=== PATIENT | male | born 1970 | race Two or more races ===

== ENCOUNTER 2025-01-09 15:33 | Inpatient (IN) | payer MEDICARE, MEDICAID, SELFPAY ==
[2025-01-09 15:35] VITALS: BMI 22.8
[2025-01-09 15:46] VITALS: RESP 20
[2025-01-09 15:47] VITALS: BP 104/61; PULSE 106; RESP 20; TEMP 36.6; O2SAT 99
--- NOTE | 2025-01-09 16:15 | XR_ITS ---
Examination: Tibia-Fibula, left , 2 views Technique: Tibia-fibula AP lateral 2 views Date and time of exam: January 09, 2025 1422 hours INDICATIONS: Redness swelling in pain at the amputation site left leg beginning 2 days ago. FINDINGS: Gross cortical bone destruction with periosteal new bone tibial amputation stump with associated soft tissue swelling IMPRESSION: Osteomyelitis tibial stump with possible soft tissue abscess Consider MRI knee without contrast follow-up
--- NOTE | 2025-01-09 16:16 | PD.EDRME ---
Rapid Medical Screening Exam RME Arrival date/time: 01/09/25 15:33 54-year-old male presents to the emergency department today for complaints of dysuria patient also reports he has drainage from his left lower leg amputation site Chief Complaint: General Adult/Misc Complain Time Seen by Provider: 01/09/25 16:08 Vital signs: Vital Signs Respiratory Rate 20 01/09/25 15:46 Oxygen Delivery Method Room Air 01/09/25 15:46
[2025-01-09 16:58] LABS: Basophils % (Auto) 1 % (0-2.5); Eosinophils # (Auto) 0.1 Thou/mm3 (0.0-0.5); Eosinophils % (Auto) 3 % (0-10); Hemoglobin 11.9 g/dL (13.5-16.0); Immature Granulocytes % (Auto) 0 % (0-0); Immature Granulocytes Auto 0.02 Thou/mm3 (0.00-0.00); Lymphocytes # (Auto) 1.8 Thou/mm3 (1.0-4.8); Lymphocytes % (Auto) 31 % (10-50); Mean Corpuscular HGB Conc 36.1 g/dl (31.0-37.0); Mean Corpuscular Hemoglobin 29.2 pg (25.0-35.0); Mean Corpuscular Volume 81 fL (80-100); Monocytes # (Auto) 0.6 Thou/mm3 (0.0-0.8); Monocytes % (Auto) 11 % (0-12); Neutrophils # (Auto) 3.1 Thou/mm3 (1.8-7.7); Neutrophils % (Auto) 54 % (37-80); Nucleated Red Blood Cell % 0 /100 WBC (0); Platelet Count 468 Thou/mm3 (140-440); Red Blood Count 4.08 Miln/mm3 (4.50-5.90); White Blood Count 5.7 Thou/mm3 (3.8-10.6)
[2025-01-09 16:59] LABS: Lactate (Lactic Acid) 2.1 mMol/L (0.4-2.0)
[2025-01-09 17:04] LABS: Collection Type, Urine Clean Catch; WBC,Urine 0 /hpf (0-5)
[2025-01-09 17:15] LABS: Prothrombin Time 11.3 Seconds (9.0-12.2)
[2025-01-09 17:25] LABS: Bilirubin,Urine Negative (Negative); Blood,Urine 1+ (Negative); Clarity,Urine Clear (Clear/Hazy); Color,Urine Yellow (Lt Yel-Yel); Culture Indicated,Urine Not Indicated; Glucose, Urine 3+ (Negative); Ketones,Urine Negative (Negative); Leukocyte Esterase,Urine Negative (Negative); Nitrite,Urine Negative (Negative); PH,Urine 6.5 (5.0-7.0); Protein,Urine 3+ (Neg - Trace); RBC,Urine 69 /hpf (0-3); Specific Gravity,Urine 1.026 (1.001-1.035); Squamous Epithelial Cell,Urine < 1 /hpf (0-5); Urobilinogen,Urine Negative mg/dL (0.0-1.0)
[2025-01-09 17:51] LABS: Alanine Aminotransferase < 7 U/L (10-49); Albumin, Serum 4.2 gm/dL (3.5-5.0); Albumin/Globulin Ratio 1.2 (1.2-2.2); Alkaline Phosphatase 99 U/L (46-116); Anion Gap 12 (7-16); Aspartate Amino Transferase 16 U/L (0-34); BUN/Creatinine Ratio 19 Ratio (12-20); Bilirubin,Total 0.3 mg/dL (0.3-1.2); Blood Urea Nitrogen 28 mg/dL (9-23); C-Reactive Protein 4.1 mg/dL (0.0-0.9); Calcium 8.6 mg/dL (8.3-10.6); Calcium (Corrected) 8.6 mg/dL (8.5-10.1); Carbon Dioxide 21.9 mMol/L (20.0-31.0); Chloride 100 mMol/L (98-107); Creatinine (Component) 1.5 mg/dL (0.6-1.3); Estimated Creatinine Clearance 53.9 mL/min (>60); Globulin 3.5 gm/dL (2.3-3.5); Glucose 139 mg/dL (74-106); Osmolality,Calculated 275 (275-295); Procalcitonin 0.19 ng/ml (0.0-0.49); Sodium 134 mMol/L (136-145); Total Protein 7.7 gm/dL (5.7-8.2); eGFR 56 See Note
--- NOTE | 2025-01-09 19:38 | XR_ITS ---
Examination: AP chest single view TECHNIQUE: AP portable upright chest single view. Examination date and time: January 09, 2025 at 1955 hours INDICATIONS: Sepsis alert FINDINGS: Normal heart size Lungs are clear. The osseous structures are mildly demineralized IMPRESSION: No active disease
[2025-01-09 19:40] VITALS: BP 114/73; PULSE 97; PULSE 98; RESP 12; RESP 99; O2SAT 100
[2025-01-09 19:55] LABS: Reflex Lactate? Y
[2025-01-09] MEDS: PIPER/TAZO 3.375 GM PREMIX 3.375 GM/50 ML BAG IV (20:08)
[2025-01-09] MEDS: SODIUM CHLORIDE 0.9% 1000 ML 1,000 ML 999 ML IV (20:08)
[2025-01-09] MEDS: DOXYCYCLINE INJ 100 MG in SODIUM CHLORIDE 0.9% (POP) 100 ML IV (20:08)
--- NOTE | 2025-01-09 20:16 | EDNOTE_ITS ---
ED General RME/HPI General Chief complaint: General Adult/Misc Complain Stated complaint: INFECTION TO THE LEFT STUMP Time Seen by Provider: 01/09/25 16:08 Arrival date/time: 01/09/25 15:33 RME / HPI RME / HPI narrative: 01/09/25 15:33 54-year-old male presents to the emergency department today for complaints of dysuria patient also reports he has drainage from his left lower leg amputation site ------ Dr. Faustin?s Main ED Evaluation: 54yo male with a history of DM, HTN, HLD presents to the ED for a chief complaint of left stump pain and drainage. Patient states [place] [facility] [place] [facility] on antibiotics, and was told to follow-up with his vascular surgeon as an outpatient. Patient and his state that they have made multiple attempts to get in contact with the surgeon who performed his BKA without success and have left multiple messages. Patient states he noticed a blister on top of his left stump 2 days ago, reporting it burst and has since had drainage. Patient denies any fever, chills, N/V or any other associated symptoms. No known allergies. Related Data Home Medications ?Medication ?Instructions ?Recorded ?Confirmed ergocalciferol (vitamin D2) 1,250 1 cap PO QWEEK 05/1110/18/22 mcg (50,000 unit) capsule (Vitamin D2) insulin glargine 100 unit/mL (3 20 unit subcut HS 02/2410/18/22 mL) subcutaneous pen (Basaglar KwikPen U-100 Insulin) insulin lispro 100 unit/mL See Rx Instructions .Route .COMPLEX 05/11/22 10/18/22 subcutaneous pen (Admelog SoloStar U-100 Insulin lispro) semaglutide 0.25 mg or 0.5 mg (2 0.5 mg subcut QWEEK 0 05/11/22 10/18/22 mg/1.5 mL) subcutaneous pen injector (Ozempic) trazodone 50 mg tablet 1 tab PO HS 05/11/22 3 Previous Rx's ?Medication ?Instructions ?Recorded metformin 1,000 mg tablet 1,000 mg PO BID #20 tabs 10/23 tramadol 50 mg tablet 50 mg PO Q6H PRN pain #20 ta bs 05/12/22 Allergies Allergy/AdvReac Type Severity Reaction Status Date / Time No Known Allergies Allergy Verified 01/09/25 15:37 Review of Systems Review of Systems Systems Reviewed: All systems reviewed, normal except as documented Past Medical History Past Medical History NEUROLOGIC: Negative Neurological Disorders or Seizures CARDIAC: Positive Cardiac Disorders, Hypercholesterolemia and Hypertension; Negative Congestive Heart Failure RESPIRATORY: Negative Chronic Obstructive Pulmonary Disease (COPD) GASTROINTESTINAL: Negative Gastrointestinal Disorders GENITOURINARY: Negative Genitourinary Disorders or Renal Disease MUSCULOSKELETAL: Negative Musculoskeletal Disorders ENDOCRINE: Positive Endocrine Disorders and Diabetes Mellitus Type 2; Negative Diabetes Mellitus Type 1 HEMATOLOGIC: Negative Blood Disorders PSYCHO/SOCIAL: Positive Depression and Anxiety OTHER HISTORY: Positive Chicken Pox; Negative Autoimmune Disease, Blood Transfusions, Blood Transfusion Reaction, Anesthesia Reactions, Measles, Mumps, Rubella (Sami Measles) or Cancer Family History FAMILY HISTORY: Positive Family Cancer Surgical History SURGICAL: Positive Amputation; Negative Cardiac Surgery, Endocrine Surgery, Ear Surgery or Abdominal Surgery Social History SMOKING STATUS: Never smoker ED Exam Narrative Physical exam: GENERAL APPEARANCE: alert and oriented x 4, well-developed, well-nourished, no acute distress VITALS: All vitals were reviewed and the pulse ox is 100% on room air, which is normal according to my interpretation. HEENT: Normocephalic, atraumatic; pupils equal, round, reactive to light; EOMI; mucous membranes pink, moist; oropharynx clear NECK: Supple LUNGS: CTABL; no wheezes, no rales, no rhonchi HEART: Tachycardic at 106, regular rhythm; normal S1, S2; no murmurs ABDOMEN: non distended; normal BS; soft, no tenderness, no guarding, no rebound; no masses, no organomegaly, no hernia BACK: no CVA tenderness EXTREMITIES: atraumatic; left BKA; left stump has 2 open wounds with overlying impetigo and perulent drainage is expressed from one of the open wounds with tenderness to palpation NEUROLOGIC: awake; alert and oriented x4; cranial nerves II-XII grossly intact; no focal sensory or motor deficits PSYCHIATRIC: appropriate mood and affect SKIN: warm, dry, normal color; no rashes Course Course Course Narrative: CXR is ordered for determining the etiology of tachycardia. Quality Measures none Orders Category Date Time Status Customer Care Coordinator Q4H START 00 Care 01/09/25 19:33 Active Continuous Pulse Oximetry NOW Care 01/09/25 19:33 Completed IV [Insert IV] NOW Care 01/09/25 19:33 Active Strict Intake and Output Routine Care 01/09/25 19:38 Ordered XR chest 1V SEPSIS PROTOCOL Stat Exams 01/09/25 19:38 Completed XR tibia fibula LT 2V Stat Exams 01/09/25 16:15 Completed Blood Culture (Lab) Stat Lab 01/09/25 16:38 Received CBC Stat Lab 01/09/25 19:27 Completed CMP [Comprehensive Metabolic Panel] Stat Lab 01/09/25 16:38 Completed CRP [C-Reactive Protein] Stat Lab 01/09/25 16:38 Completed ESR [Sed Rate (ESR)] Stat Lab 01/09/25 19:27 Completed Lactic Acid [Lactate (Lactic Acid)] Stat Lab 01/09/25 16:38 Completed Lactic Acid, 3 HR Stat Lab 01/09/25 19:55 Completed PT [Prothrombin Time with INR] Stat Lab 01/09/25 16:38 Completed Procalcitonin Stat Lab 01/09/25 16:38 Completed UA, C/S IF [Urinalysis, C/S if Indicated] Stat Lab 01/09/25 16:40 Completed Doxycycline Inj [Vibramycin Inj] 100 mg Med 01/09/25 19:33 Discontinued Sodium Chloride 0.9% (Pop) [NS 0.9% mini bag] 100 ml IV X1 Ondansetron Inj [Zofran Inj] Med 01/09/25 20:53 Discontinued 4 mg IV X1 ONE Piper/Tazo 3.375 gm Premix [Zosyn] Med 01/09/25 19:35 Discontinued 3.375 gm in 50 ml IV X1 Sodium Chloride 0.9% 1000 ml [Ns] 1,000 ml Med 01/09/25 19:39 Discontinued IV 999 mls/hr fentaNYL INJ [Sublimaze Inj] Med 01/09/25 21:00 Active 50 mcg IVP X1 EKG (RT) Stat RT 01/09/25 19:38 Ordered Oxygen Delivery NOW RT 01/09/25 19:38 Active Vital Signs Vital signs: Vital Signs Respiratory Rate 20 01/09/25 15:46 Oxygen Delivery Method Room Air 01/09/25 15:46 Discharge Plan Plan Patient Disposition: Admit Acute Care w/in Hospital Problem List Clinical Impression: Osteomyelitis MDM Narrative MDM hospital course (for use when minimal MDM required): Scribe Attestation: 01/09/25 - Merle Rose, am scribing for and in the presence of Dr. Faustin. 2033: Discussed case with Dr. Harris from general surgery regarding consultation. Discussed patients ED course, exam findings, labs, and radiology results. Refuses to consult on this case. States to either discharge the patient or [place] [facility] I explained to him that we cannot do that as it's an EMTALA violation. Hospital linux administrator on-call notified. 2038: Dr. Harris called me back. After having an extensive conversation regarding this case, he agrees to consult. 2048: Discussed case with Dr. Álvarez from Hospitalist service regarding admission. Discussed patients ED course, exam findings, labs, and radiology results. The Hospitalist agrees to accept the patient for admission. Clinical Information Provided by: patient and spouse [facility] (Per chart review, patient has no relevant previous ED visits.) and other (Reviewed discharge [place] [facility] [place], which show the patient was informed to follow-up with his vascular surgeon.) Meds/Rx considered, not ordered None Labs/Rad/Tests considered, not ordered None Chronic Illness/Social Conditions Explain: History of DM, HTN, HLD Labs Labs: Interpreted by me Lab(s) Interpretation(s): CBC is normal, PT and INR are normal, Creatinine is 1.5, Glucose is 136, Lactic Acid is 2.1, CRP is elevated at 4.1, Procalcitonin is normal, UA is negative, according to my interpretation. Imaging Imaging interpretation: Interpreted by me Imaging Interpretation(s): [place] [facility] Report Signed Patient: ANNELISE ALBERTO [facility] Record#: [id number] Birthdate: 1970 Age/Sex: 54 / M Location: [facility] Attending Dr: Ordering Physician: Chapincito Faustin MD Date of Service: 01/09/25 Procedure(s): XR chest 1V SEPSIS PROTOCOL Accession Number(s): [id number] cc: Ravin Lynne MD; NO PRIMARY/FAMILY,PHYSICIAN; Chapincito Faustin MD~ Examination: AP chest single view TECHNIQUE: AP portable upright chest single view. Examination date and time: January 09, 2025 at 1955 hours INDICATIONS: Sepsis alert FINDINGS: Normal heart size Lungs are clear. The osseous structures are mildly demineralized IMPRESSION: No active disease Dictated By: Ravin Lynne MD Signed By: <Electronically signed by Ravin Lynne MD in OV> 01/09/252025 [place] [facility] Report Signed Patient: ANNELISE ALBERTO [facility] Record#: [id number] Birthdate: 1970 Age/Sex: 54 / M Location: [facility] Attending Dr: Ordering Physician: Lukas YE),Amarjit GAY Date of Service: 01/09/25 Procedure(s): XR tibia fibula LT 2V Accession Number(s): [id number] cc: Lukas YE),Amarjit GAY; Ravin Lynne MD; NO PRIMARY/FAMILY,PHYSICIAN~ Examination: Tibia-Fibula, left , 2 views Technique: Tibia-fibula AP lateral 2 views Date and time of exam: January 09, 2025 1422 hours INDICATIONS: Redness swelling in pain at the amputation site left leg beginning 2 days ago. FINDINGS: Gross cortical bone destruction with periosteal new bone tibial amputation stump with associated soft tissue swelling IMPRESSION: Osteomyelitis tibial stump with possible soft tissue abscess Consider MRI knee without contrast follow-up Dictated By: Ravin Lynne MD Signed By: <Electronically signed by Ravin Lynne MD in OV> 01/09/25 8677 Medication Administration(s) Medication Administration History Acetaminophen (Acetaminophen 325 Mg Tablet) 650 mg PO Q6H PRN PRN Reason: Fever >100.3 or pain Stop: 02/08/25 21:55 Dextrose (Dextrose 50%-Water Inj 50 Ml Syringe) 25 ml IV Q15MIN PRN PRN Reason: BG 50-70 responsive npo pt Stop: 02/08/25 21:02 Dextrose (Dextrose 50%-Water Inj 50 Ml Syringe) 50 ml IV Q15MIN PRN PRN Reason: BG <50 OR BG <70 & pt unresponsive Stop: 02/08/25 21:02 Fentanyl Citrate (Fentanyl Cit Inj 50 Mcg/Ml Amp 2ml) 50 mcg IVP X1 [facility] Stop: 01/14/25 20:59 Glucagon (Glucagon Inj 1 Mg Vial) 1 mg IM Q15MIN PRN PRN Reason: BG <70, and no IV access Heparin Sodium (Porcine) (Heparin Sod Inj 5000 Unit/Ml Vial) 5,000 unit SC Q8HR JOVANNY Stop: 01/23/25 22:14 Sodium Chloride (Ns) 1,000 mls @ 100 mls/hr IV .Q10H JOVANNY Stop: 02/08/25 21:02 Last Admin: 01/09/25 21:36 Dose: 100 mls/hr Documented By: CRUZ Piperacillin/Tazobactam/Dextrose (Zosyn) 3.375 gm in 50 mls @ 12.5 mls/hr IV Q8HR [facility] Stop: 01/16/25 21:04 Insulin Glargine (Insulin Glargine (Lantus) 5 Unit/0.05 Ml (Per 5 Units)) 10 unit SC QDAY [facility] Stop: 02/09/25 08:59 Insulin Human Lispro (Insulin Lispro (Admelog) 1 Unit/0.01 Ml Unit) 0 unit SC AC [facility]; Protocol Stop: 02/09/25 07:29 Ondansetron HCl (Ondansetron Inj 2 Mg/Ml Inj 2 Ml) 4 mg IV Q6H PRN; Protocol PRN Reason: NAUSEA OR VOMITING Stop: 02/08/25 21:55 Pharmacy Consult (Vancomycin Pharmacy To Dose 1 Each Each) 1 each IV QDAY [facility] Stop: 02/09/25 08:59 Sennosides (Senna Tablet) 1 tab PO QDAY PRN; Protocol PRN Reason: constipation Stop: 02/08/25 21:55 Discontinued Medications Piperacillin/Tazobactam/Dextrose (Zosyn) 3.375 gm in 50 mls @ 100 mls/hr IV X1 ONE Stop: 01/09/25 20:04 Last Infusion: 01/09/25 20:38 Dose: Infused Documented By: Admin: 01/09/25 20:08 Dose: 100 mls/hr Documented By: TERENCE Doxycycline Hyclate 100 mg/ (Sodium Chloride) 100 mls @ 100 mls/hr IV X1 ONE Stop: 01/09/25 20:32 Last Infusion: 01/09/25 21:08 Dose: Infused Documented By: Admin: 01/09/25 20:08 Dose: 100 mls/hr Documented By: TERENCE Sodium Chloride (Ns) 1,000 mls @ 999 mls/hr IV .Q1H1M ONE Stop: 01/09/25 20:39 Last Infusion: 01/09/25 21:09 Dose: Infused Documented By: Admin: 01/09/25 20:08 Dose: 999 mls/hr Documented By: TERENCE Piperacillin/Tazobactam/Dextrose (Zosyn) 3.375 gm in 50 mls @ 100 mls/hr IV Q8HR JOVANNY Stop: 01/16/25 21:04 Vancomycin/Sodium Chloride (Vancomycin/Ns 1 Gm Ivpb) 200 mls @ 120 mls/hr IV X1 ONE Stop: 01/09/25 22:54 Last Admin: 01/09/25 21:36 Dose: 120 mls/hr Documented By: CRUZ Ondansetron HCl (Ondansetron Inj 2 Mg/Ml Inj 2 Ml) 4 mg IV X1 ONE; Protocol Stop: 01/09/25 20:54 Last Admin: 01/09/25 21:53 Dose: 4 mg Documented By: CRUZ see above Diagnosis Differential Diagnosis ED Complaint MDM: cellulitis, osteomyelitis, subcutaneous abscess, sepsis
[2025-01-09 20:21] LABS: Sed Rate (ESR) 37 mm/hr (0-20)
[2025-01-09 21:05] LABS: Lactic Acid, 3 HR 1.1 mMol/L (0.4-2.0)
--- NOTE | 2025-01-09 21:05 | PD.EVENT ---
Documentation for date of: 01/09/25 Event Note Event Note: A 54-year-old male presented to the ER with the chief complaint of dysuria and drainage from his left leg amputation site. The patient described 2 days of drainage from the left stump. He noticed a blister over the site that burst, followed by ongoing pus discharge. He reports mild pain described as burning and discomfort at the site. He also c/o burning with urination (started 2 days ago), mild cough (uncertain cause), and subjective mild stump pain. Patient denied fever, chills, nausea, vomiting, chest pain, or shortness of breath. He was seen at [facility] three weeks ago for a similar infection and was discharged home on antibiotics with instructions to follow up with surgery. He reports incomplete use of oral antibiotics but continues using a topical cream. He presented today due to worsening drainage and persistent symptoms. The patient has a history of DM, HTN, and HLD. Surgical history includes right great toe amputation (2020) and left below-knee amputation (2022). Current medications include Clindamycin, Gabapentin, Insulin Glargine, Insulin Lispro, Lisinopril. Social history includes no smoking, alcohol, or drug use. In the ER, vital signs recorded as temp 97.8 F, HR 106 bpm, RR 20, BP 104/61 mmHg. Lab revealed Hb 11.9 g/dL, WBC 5.7 Thou/mm3, Plt 468 Thou/mm3, Na 134 mMol/L, K 4.0 mMol/L, Cl 100 mMol/L, BUN 28 mg/dL, Creatinine 1.5 mg/dL, eGFR 56, Procalcitonin 0.19, AST 16, ALT <7, Bilirubin 0.3, Lactic acid 2.1, Cr 4.1, ESR 37. XR tibia/fibula showed osteomyelitis of the tibial stump with possible soft tissue abscess; consider MRI knee without contrast follow-up. CXR showed no active disease. Surgery was consulted. Admit for further evaluation and treatment.
[2025-01-09] MEDS: SODIUM CHLORIDE 0.9% 1000 ML 1,000 ML 100 ML IV (21:36)
[2025-01-09] MEDS: VANCOMYCIN/NS 1 GM IVPB 200 ML IV (21:36)
[2025-01-09] MEDS: ONDANSETRON INJ 2 MG/ML INJ 2 ML 4 MG IV (21:53)
--- NOTE | 2025-01-09 22:04 | ESHP_ITS ---
Documentation for date of: 01/09/25 HPI History of Present Illness Chief complaint: Left leg infection History of present illness: Kwabena Weber is 54 yr male with PMH of poorly controlled diabetes, hypertension, hyperlipidemia presenting to ED today due to worsening infection at area of left leg amputation. 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 Since then patient uses walker for assistance. In the past 2 to 3 weeks, he has been experiencing moderate pain, erythema, drainage, foul-smelling odor, and bleeding from site of amputation. Patient had gone to [facility] on December 18 and was discharged from the ED with p.o. antibiotics. Patient was instructed to contact vascular surgery in [place] for evaluation. However multiple attempts have been made with no response. Patient decided to then come to [facility] for evaluation and management. He uses a CGM monitor at home with average blood sugars ranging 300-400s. Continues to eat sugar, high carbs, and bunch of soda everyday. He denies any fever, chills. Endorses dysuria. In ED, BP 104/61, tachycardia 106, afebrile. No leukocytosis, platelets 468, Hb 11.9, mild hyponatremia sodium 134, Cr 1.5, glucose 139, Elevated ESR 37, lactic acid 2.1, elevated CRP 4.1. UA 3+ protein, 3+ glucosuria, hematuria. Leukocyte esterase negative, no WBCs. Left x-ray of foot, tibia, fibula showed cortical bone destruction with soft tissue swelling. Follow-up MRI pending. Patient to be admitted for treatment for sepsis secondary to osteomyelitis and STEPHANIE. PMH: As noted above PSH: Left BKA at 2022, right toe amputation 2021 FamHx: Diabetes in mother and father, hypertension. Social: Unemployed, lives with , denies smoking, denies drinking, denies drug use. Meds: 20 units glargine, sliding scale insulin, metformin 1000 twice daily, Ozempic 0.5 mg, tramadol Allergies: NKDA Review of Systems Review of Systems Systems Reviewed: All systems reviewed, normal except as documented Exam Vital Signs Temp Pulse Resp BP Pulse Ox O2 Del Method 97.8 F 97 12 114/73 100 Room Air 01/09/25 15:47 01/09/25 19:40 01/09/25 19:40 01/09/25 19:40 01/09/25 19:40 01/09/25 19:40 Narrative Exam General: Middle-aged male, no acute distress, cooperative. HEENT: NCAT, No JVD noted. Mucosa moist, poor oral hygiene. Pupils are equal and reactive to light .bilaterally Cardiovascular: Normal S1 and S2. Regular rate and rhythm. Respiratory: Lungs are clear to auscultation bilaterally. No wheezing or crackles heard. Abdomen: Soft, nontender, not distended, normal bowel sounds. Skin: Warm to touch, dry, no rashes noted. Musculoskeletal: No gross injuries. Able to move all 4 extremities. Left BKA, right first toe amputation. Left leg erythematous, no odor, no active bleeding or pus drainage. no pitting edema. Neuro: Alert and oriented x3. No focal neuro deficits. Psych: Normal affect and mood. Results: Labs 01/09/25 19:27 01/09/25 16:38 Labs: Short CBC 01/09/25 Range/Units 19:27 WBC 5.7 (3.8-10.6) Thou/mm3 Hgb 11.9 L (13.5-16.0) g/dL Hct 33.0 L (41.0-53.0) % Plt Count 468 H (140-440) Thou/mm3 BMP 01/09/25 16:38 Sodium 134 L Potassium 4.0 Chloride 100 Carbon Dioxide 21.9 BUN 28 H Creatinine 1.5 H Glucose 139 H Calcium 8.6 Liver Function 01/09/25 Range/Units 16:38 Total Bilirubin 0.3 (0.3-1.2) mg/dL AST 16 (0-34) U/L ALT < 7 L (10-49) U/L Alkaline Phosphatase 99 (46-116) U/L Albumin 4.2 (3.5-5.0) gm/dL Urine 01/09/25 Range/Units 16:40 Urine Color Yellow (Lt Yel-Yel) Urine Clarity Clear (Clear/Hazy) Urine pH 6.5 (5.0-7.0) Ur Specific [place] 1.026 (1.001-1.035) Urine Protein 3+ A (Neg - Trace) Urine Glucose (UA) 3+ A (Negative) Quality Measures Quality Measures none Medications Home Medications and Allergies Home Medications ?Medication ?Instructions ?Recorded ?Confirmed ?Type ergocalciferol (vitamin D2) 1,250 1 cap PO QWEEK 05/1110/18/22 History mcg (50,000 unit) capsule (Vitamin D2) insulin glargine 100 unit/mL (3 20 unit subcut HS 02/2410/18/22 History mL) subcutaneous pen (Basaglar KwikPen U-100 Insulin) insulin lispro 100 unit/mL See Rx Instructions .Route .COMPLEX 05/11/22 10/18/22 History subcutaneous pen (Admelog SoloStar U-100 Insulin lispro) semaglutide 0.25 mg or 0.5 mg (2 0.5 mg subcut QWEEK 0 05/11/22 10/18/22 History mg/1.5 mL) subcutaneous pen injector (Ozempic) trazodone 50 mg tablet 1 tab PO HS 05/11/22 3 History Allergies Allergy/AdvReac Type Severity Reaction Status Date / Time No Known Allergies Allergy Verified 01/09/25 15:37 Visit Medications Acetaminophen (Acetaminophen 325 Mg Tablet) 650 mg PO Q6H PRN PRN Reason: Fever >100.3 or pain Stop: 02/08/25 21:55 Dextrose (Dextrose 50%-Water Inj 50 Ml Syringe) 25 ml IV Q15MIN PRN PRN Reason: BG 50-70 responsive npo pt Stop: 02/08/25 21:02 Dextrose (Dextrose 50%-Water Inj 50 Ml Syringe) 50 ml IV Q15MIN PRN PRN Reason: BG <50 OR BG <70 & pt unresponsive Stop: 02/08/25 21:02 Fentanyl Citrate (Fentanyl Cit Inj 50 Mcg/Ml Amp 2ml) 50 mcg IVP X1 JOVANNY Stop: 01/14/25 20:59 Glucagon (Glucagon Inj 1 Mg Vial) 1 mg IM Q15MIN PRN PRN Reason: BG <70, and no IV access Heparin Sodium (Porcine) (Heparin Sod Inj 5000 Unit/Ml Vial) 5,000 unit SC Q8HR JOVANNY Stop: 01/23/25 22:14 Sodium Chloride (Ns) 1,000 mls @ 100 mls/hr IV .Q10H JOVANNY Stop: 02/08/25 21:02 Last Admin: 01/09/25 21:36 Dose: 100 mls/hr Piperacillin/Tazobactam/Dextrose (Zosyn) 3.375 gm in 50 mls @ 12.5 mls/hr IV Q8HR JOVANNY Stop: 01/16/25 21:04 Vancomycin/Sodium Chloride (Vancomycin/Ns 1 Gm Ivpb) 200 mls @ 120 mls/hr IV X1 ONE Stop: 01/09/25 22:54 Last Admin: 01/09/25 21:36 Dose: 120 mls/hr Insulin Glargine (Insulin Glargine (Lantus) 5 Unit/0.05 Ml (Per 5 Units)) 10 unit SC QDAY JOVANNY Stop: 02/09/25 08:59 Insulin Human Lispro (Insulin Lispro (Admelog) 1 Unit/0.01 Ml Unit) 0 unit SC AC JOVANNY; Protocol Stop: 02/09/25 07:29 Ondansetron HCl (Ondansetron Inj 2 Mg/Ml Inj 2 Ml) 4 mg IV Q6H PRN; Protocol PRN Reason: NAUSEA OR VOMITING Stop: 02/08/25 21:55 Pharmacy Consult (Vancomycin Pharmacy To Dose 1 Each Each) 1 each IV QDAY JOVANNY Stop: 02/09/25 08:59 Sennosides (Senna Tablet) 1 tab PO QDAY PRN; Protocol PRN Reason: constipation Stop: 02/08/25 21:55 Discontinued Medications Piperacillin/Tazobactam/Dextrose (Zosyn) 3.375 gm in 50 mls @ 100 mls/hr IV X1 ONE Stop: 01/09/25 20:04 Last Infusion: 01/09/25 20:38 Dose: Infused Doxycycline Hyclate 100 mg/ (Sodium Chloride) 100 mls @ 100 mls/hr IV X1 ONE Stop: 01/09/25 20:32 Last Infusion: 01/09/25 21:08 Dose: Infused Sodium Chloride (Ns) 1,000 mls @ 999 mls/hr IV .Q1H1M ONE Stop: 01/09/25 20:39 Last Infusion: 01/09/25 21:09 Dose: Infused Piperacillin/Tazobactam/Dextrose (Zosyn) 3.375 gm in 50 mls @ 100 mls/hr IV Q8HR JOVANNY Stop: 01/16/25 21:04 Ondansetron HCl (Ondansetron Inj 2 Mg/Ml Inj 2 Ml) 4 mg IV X1 ONE; Protocol Stop: 01/09/25 20:54 Last Admin: 01/09/25 21:53 Dose: 4 mg Assessment & Plan Plan Kwabena Weber is 54 yr male with PMH of poorly controlled diabetes, hypertension, hyperlipidemia presenting to ED today due to worsening infection at area of left leg amputation. 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 Patient to be admitted for treatment for sepsis secondary to osteomyelitis and STEPHANIE. #Sepsis 2/2 osteomyelitis infection Patient has history of left BKA due to osteomyelitis in the past. Site of amputation showing signs of infection with pus, odor, erythema. No leukocytosis, ESR elevated 37, lactic acid 2.1, CRP elevated 4.1. Sepsis due to osteomyelitis with acute sepsis-related organ dysfunction as evidence by STEPHANIE. Left x-ray of foot, tibia, fibula showed cortical bone destruction with soft tissue swelling. - Blood cultures pending - MRI left leg pending - Surgery Dr. Abernathy was consulted, appreciate recs - IV Zosyn 3.375g TID (01/09-) - Vancomycin (01/09-) #STEPHANIE BUN 28, Cr 1.5. BUN/Cr 19. Most likely pre renal in setting of sepsis. - Maintenance fluids - Avoid nephrotoxic agents - Daily CMP #Hx insulin-dependent diabetes, poorly controlled Glucose on admission 139. No recent A1c on file. Patient takes 20 units glargine, sliding scale insulin, metformin 1000 twice daily for diabetes at home. Average blood sugars at home 300?400. Patient does not comply to proper diet drinking multiple sodas every day. - Held home medications - Bedside blood glucose checks ACHS - Insulin lispro sliding scale - Carb consistent low diet - A1c pending #Hx HTN #Hx HLD - Med rec pending Health maintenance: Dispo: mes surg, OM FEN: low carb, NPO midnight DVT prophylaxis: Subcu heparin CODE STATUS: Full code The patient's management plan was discussed with my attending physician Dr. Álvarez. Addie Goodrich, PGY-1 Attending Provider Attestation/Addendum Pt was evaluated and plan formulated together with the housestaff team. I have reviewed the residents note above and agree with most of its content. Please refer to the residents note for additional details.
[2025-01-09 22:54] VITALS: BP 117/84; PULSE 99; RESP 16; O2SAT 99
[2025-01-09 23:16] LABS: Glucose Estimated Average 355 mg/dL (80-131); Hemoglobin A1C > 14.0 % Hgb (4.8-6.0)
--- NOTE | 2025-01-10 | XR_ITS ---
Examination: MRI left lower leg with intravenous contrast TECHNIQUE: Multiple axial sagittal coronal MRI images left knee post intravenous ministration 13 cc gadolinium Exam date and time: January 2025 1143 hours Comparison MRI knee images without contrast January 10, 2025 1103 hours INDICATIONS: History below the knee amputation, redness swelling and pain at the amputation stump this week FINDINGS: Marked abnormal enhancement involving the distal tibia which actually begins 11 cm from the amputation stump Nonenhancing soft tissue abscess at the anterior distal tibia is again noted 10 x 20 x 9 mm Fibula appears intact IMPRESSION: Extensive osteomyelitis distal tibia Small soft tissue abscess
--- NOTE | 2025-01-10 | XR_ITS ---
Examination: MRI left lower leg, without contrast Date and time of exam: January 10, 2025 1103 hours INDICATIONS: History below the knee amputation, redness swelling and pain at the amputation site left knee noticed this week Technique: Multiple axial sagittal and coronal images of the left lower leg have been obtained with the Siemens high-resolution 1.5 Nida MRI scanner. Images obtained include T2-weighted fat-suppressed sagittal sections, TR 3500, TE 46, T2 weighted coronal fat suppressed images, TR 3050, TE 84, T2-weighted transverse fat suppressed images, TR 3260, TE 63, proton density transverse images, TR 4720 TE 46, and T1 weighted coronal images, TR 560, TE 13. Findings: Extensive edema in the subcutaneous tissues surrounding the amputation stump Marked cortical bone destruction involving the distal tibia extending at least 5 cm from the tibial stump Extensive soft tissue infection at the amputation stump with a 8 x 10 x 20 mm abscess at the anterior distal margin of the tibia IMPRESSION: Significant osteomyelitis distal tibia as above 8 x 10 x 20 mm soft tissue abscess at the anterior distal margin of the tibia
[2025-01-10] MEDS: PIPER/TAZO 3.375 GM PREMIX 3.375 GM/50 ML BAG IV ×2 (00:16→07:50)
[2025-01-10] MEDS: HEPARIN SOD INJ 5000 UNIT/ML VIAL SC ×4 (00:16→21:54)
[2025-01-10 02:17] VITALS: BP 111/84; PULSE 89; RESP 15; TEMP 36.7; O2SAT 100
[2025-01-10 05:58] LABS: Basophils % (Auto) 1 % (0-2.5); Eosinophils # (Auto) 0.2 Thou/mm3 (0.0-0.5); Eosinophils % (Auto) 3 % (0-10); Hematocrit 28.3 % (41.0-53.0); Hemoglobin 9.9 g/dL (13.5-16.0); Immature Granulocytes % (Auto) 1 % (0-0); Immature Granulocytes Auto 0.03 Thou/mm3 (0.00-0.00); Lymphocytes % (Auto) 38 % (10-50); Mean Corpuscular Hemoglobin 29.1 pg (25.0-35.0); Mean Corpuscular Volume 83 fL (80-100); Monocytes # (Auto) 0.6 Thou/mm3 (0.0-0.8); Monocytes % (Auto) 11 % (0-12); Neutrophils # (Auto) 2.4 Thou/mm3 (1.8-7.7); Neutrophils % (Auto) 47 % (37-80); Nucleated Red Blood Cell % 0 /100 WBC (0); Platelet Count 428 Thou/mm3 (140-440); RDW Standard Deviation 38.1 fL (35.1-43.9); White Blood Count 5.1 Thou/mm3 (3.8-10.6)
[2025-01-10 06:07] VITALS: BP 135/82; PULSE 91; RESP 15; O2SAT 97
[2025-01-10 06:26] LABS: Alanine Aminotransferase < 7 U/L (10-49); Albumin, Serum 3.3 gm/dL (3.5-5.0); Albumin/Globulin Ratio 1.1 (1.2-2.2); Alkaline Phosphatase 79 U/L (46-116); Anion Gap 6 (7-16); Aspartate Amino Transferase 10 U/L (0-34); BUN/Creatinine Ratio 21 Ratio (12-20); Bilirubin,Total 0.2 mg/dL (0.3-1.2); Blood Urea Nitrogen 23 mg/dL (9-23); Calcium 7.7 mg/dL (8.3-10.6); Calcium (Corrected) 8.3 mg/dL (8.5-10.1); Carbon Dioxide 25.7 mMol/L (20.0-31.0); Chloride 106 mMol/L (98-107); Creatinine (Component) 1.1 mg/dL (0.6-1.3); Estimated Creatinine Clearance 73.4 mL/min (>60); Glucose 180 mg/dL (74-106); Magnesium 1.5 mg/dL (1.6-2.6); Osmolality,Calculated 284 (275-295); Phosphorous 2.8 mg/dL (2.4-5.1); Potassium 3.8 mMol/L (3.4-5.1); Sodium 138 mMol/L (136-145); Total Protein 6.3 gm/dL (5.7-8.2); eGFR > 60 See Note
[2025-01-10] MEDS: INSULIN LISPRO (AdmeLOG) 1 UNIT/0.01 ML UNIT SC ×3 (07:48→17:44)
[2025-01-10] MEDS: SODIUM CHLORIDE 0.9% 1000 ML 1,000 ML 100 ML IV ×2 (07:49→19:16)
[2025-01-10 08:26] VITALS: BP 128/84; PULSE 88; RESP 16; TEMP 36.5; O2SAT 100
[2025-01-10] MEDS: INSULIN GLARGINE (Lantus) 5 UNIT/0.05 ML (PER 5 UNITS) 10 UNIT SC (09:41)
[2025-01-10] MEDS: VANCOMYCIN/NS 750 MG IVPB 750 MG/150 ML BAG 120 MG IV (09:43)
[2025-01-10 10:32] VITALS: BP 115/80; PULSE 94; RESP 18; TEMP 36.8; O2SAT 98
--- NOTE | 2025-01-10 11:00 | ESCONSULT_ITS ---
[facility] Consult details Consult date: 01/10/25 Reason for consultation narrative: The patient was seen on consultation because of infection over the stump of the below-knee amputation. History of present illness: History of present illness revealed that the patient had undergone below-knee amputation at [facility] in 2022. He was ambulating with prosthesis. But 3 weeks ago he developed some drainage over the stump and some redness. They treated him with antibiotics and discharge him. Patient has been planning to get in touch with the surgeon who performed the amputation but he was unsuccessful. It looks that they also advised him to contact vascular surgeon for follow-up. Patient therefore came to the emergency room at [facility]. Patient's past emergency room that he had history of diabetes which is poorly controlled, hypertension and hyperlipidemia. Patient also has had surgery on the right foot with amputation of the toe on multiple surgeries on the right foot by the dialysis equipment technician. Past Medical History Past Medical History NEUROLOGIC: Negative Neurological Disorders or Seizures CARDIAC: Positive Cardiac Disorders, Hypercholesterolemia and Hypertension; Negative Congestive Heart Failure RESPIRATORY: Negative Respiratory Disorders or Chronic Obstructive Pulmonary Disease (COPD) GASTROINTESTINAL: Negative Gastrointestinal Disorders GENITOURINARY: Negative Genitourinary Disorders or Renal Disease MUSCULOSKELETAL: Negative Musculoskeletal Disorders ENDOCRINE: Positive Endocrine Disorders and Diabetes Mellitus Type 2; Negative Diabetes Mellitus Type 1 HEMATOLOGIC: Negative Blood Disorders PSYCHO/SOCIAL: Positive Depression and Anxiety OTHER HISTORY: Positive Chicken Pox; Negative Autoimmune Disease, Blood Transfusions, Blood Transfusion Reaction, Anesthesia Reactions, Measles, Mumps, Rubella (Wolof Measles) or Cancer Family History FAMILY HISTORY: Positive Family Cancer Surgical History SURGICAL: Positive Amputation; Negative Cardiac Surgery, Endocrine Surgery, Ear Surgery or Abdominal Surgery Social History SMOKING STATUS: Never smoker Meds Home Medications and Allergies Home Medications ?Medication ?Instructions ?Recorded ?Confirmed ?Type ergocalciferol (vitamin D2) 1,250 1 cap PO QWEEK 05/1110/18/22 History mcg (50,000 unit) capsule (Vitamin D2) insulin glargine 100 unit/mL (3 20 unit subcut HS 02/2410/18/22 History mL) subcutaneous pen (Basaglar KwikPen U-100 Insulin) insulin lispro 100 unit/mL See Rx Instructions .Route .COMPLEX 05/11/22 10/18/22 History subcutaneous pen (Admelog SoloStar U-100 Insulin lispro) semaglutide 0.25 mg or 0.5 mg (2 0.5 mg subcut QWEEK 0 05/11/22 10/18/22 History mg/1.5 mL) subcutaneous pen injector (Ozempic) trazodone 50 mg tablet 1 tab PO HS 05/11/22 3 History Allergies Allergy/AdvReac Type Severity Reaction Status Date / Time No Known Allergies Allergy Verified 01/09/25 15:37 Exam Vital Signs Temp Pulse Resp BP Pulse Ox O2 Del Method 98.2 F 94 18 115/80 98 Room Air 01/10/25 10:32 01/10/25 10:32 01/10/25 10:32 01/10/25 10:32 01/10/25 10:32 01/10/25 10:32 Narrative Exam My physical examination revealed a thin built male who is 5 foot 7 inches tall weighing 146 pounds with BMI of 22.9 his vital signs are normal and patient is not in distress Constitutional Constitutional: no acute distress Routine Chest/Breast/Axilla Exam Comments: Within normal limits Routine Respiratory Exam Comments: Good breath sounds on both Routine Abdominal Exam Comments: Abdominal examination is unremarkable Routine Rectal Exam Comments: Deferred Routine Exam Comments: Deferred Routine Extremities Exam Comments: Examination of the extremities showed below the knee amputation on the left which is nicely healed. There is 1 area which is slightly open and draining some serous fluid. There is no erythema or gangrene or ischemic changes at the stump. Patient has a good palpable popliteal pulse on the left side. Examination of the right foot revealed amputation of the right great toe. Pedal pulses are difficult to palpate Results Results: Laboratory Laboratory Narrative: Laboratory results are within normal limits with no leukocytosis Results: Imaging Imaging narrative: The x-ray of the left BKA stump showed osteomyelitis of the tibial and Assessment & Plan Additional Assessment Additional comments: Impression: Osteomyelitis of the left below-knee stump with superficial abscesses Poorly controlled diabetes Hypertension Hyperlipidemia Plan Plan: Patient requires IV antibiotic therapy to see if we can salvage his BKA stump. Since there is no ischemia or infection in the skin patient does not require surgical intervention of this time. I do not find any abscess to drain. I suggest we also get an opinion from orthopedic surgeon to see how to treat this osteomyelitis of the tibia. Patient may have to go on a long-term IV antibiotics. Meanwhile patient is attempting to contact the surgeon who should see this stump on continue care.
--- NOTE | 2025-01-10 11:47 | ESPR_ITS ---
Documentation for date of: 01/10/25 Subjective Subjective Interval history: Patient seen today at the bedside found awake, alert, oriented x 3. Vital signs and labs reviewed. Patient is an overnight admit for osteomyelitis. General surgery evaluated the patient recommended IV antibiotics at this time no need for surgical intervention. Antibiotic therapy adjusted to Rocephin and doxycycline. Infectious disease was consulted will appreciate further recommendations. Exam Vital Signs Temp Pulse Resp BP Pulse Ox O2 Del Method 98.2 F 94 18 115/80 98 Room Air 01/10/25 10:32 01/10/25 10:32 01/10/25 10:32 01/10/25 10:32 01/10/25 10:32 01/10/25 10:32 Narrative Exam Physical Exam GENERAL: NAD, AAOx3 HEENT: Moist mucosa. Eyes open, symmetrical, & clear CARDIO: Heart RRR, no obvious murmurs PULM: No noted coughing/dyspnea CTA B/L, no R/W/R GI: Abdomen soft, nondistended, no pain on palpation. BSx4 SKIN/MSK/EXT: Left BKA, right first toe amputation. Left leg erythematous, no pain on palpation. Pedal pulses present B/L NEURO: AAOx3, no focal neuro deficits, able to move all 4 extremities Objective Labs 01/10/25 05:00 01/10/25 04:40 Labs: Laboratory Results - last 24 hr 01/09/25 01/09/25 01/09/25 16:38 16:40 19:27 WBC 5.7 RBC 4.08 L Hgb 11.9 L Hct 33.0 L MCV 81 MCH 29.2 MCHC 36.1 RDW Std Deviation 36.0 Plt Count 468 H Neut % (Auto) 54 Lymph % (Auto) 31 [place] % (Auto) 11 Eos % (Auto) 3 Baso % (Auto) 1 Neut # (Auto) 3.1 Lymph # (Auto) 1.8 [place] # (Auto) 0.6 Eos # (Auto) 0.1 Baso # (Auto) 0.0 Immature Gran # (Auto) 0.02 H Absolute Nucleated RBC 0.00 Immature Gran % 0 Nucleated RBC % 0 ESR 37 H PT 11.3 INR 1.0 Sodium 134 L Potassium 4.0 Chloride 100 Carbon Dioxide 21.9 Anion Gap 12 BUN 28 H Creatinine 1.5 H Estim Creat Clear Calc 53.9 L eGFR 56 L BUN/Creatinine Ratio [address] Glu mg/dL Hemoglobin A1c Calculated Osmolality 275 Lactic Acid 2.1 H Calcium 8.6 Corrected Calcium 8.6 Phosphorus Magnesium Total Bilirubin 0.3 AST 16 ALT < 7 L Alkaline Phosphatase 99 C-Reactive Prot, Quant 4.1 H Total Protein 7.7 Albumin 4.2 Globulin 3.5 Albumin/Globulin Ratio 1.2 Procalcitonin 0.19 Ur Collection Type Clean Catch Urine Color Yellow Urine Clarity Clear Urine pH 6.5 Ur Specific [place] 1.026 Urine Protein 3+ A Urine Glucose (UA) 3+ A Urine Ketones Negative Urine Blood 1+ A Urine Nitrite Negative Urine Bilirubin Negative Urine Urobilinogen (Auto) Negative Ur Leukocyte Esterase Negative Urine RBC 69 H Urine WBC 0 Ur Squamous Epith Cells < 1 Urine Bacteria None Ur Culture Indicated? Not Indicated 01/09/25 01/10/25 01/10/25 19:55 04:40 05:00 WBC 5.1 RBC 3.40 L Hgb 9.9 L D Hct 28.3 L MCV 83 MCH 29.1 MCHC 35.0 RDW Std Deviation 38.1 Plt Count 428 D Neut % (Auto) 47 Lymph % (Auto) 38 [place] % (Auto) 11 Eos % (Auto) 3 Baso % (Auto) 1 Neut # (Auto) 2.4 Lymph # (Auto) 2.0 [place] # (Auto) 0.6 Eos # (Auto) 0.2 Baso # (Auto) 0.0 Immature Gran # (Auto) 0.03 H Absolute Nucleated RBC 0.00 Immature Gran % 1 H Nucleated RBC % 0 ESR PT INR Sodium 138 Potassium 3.8 Chloride 106 Carbon Dioxide 25.7 Anion Gap 6 L BUN 23 Creatinine 1.1 Estim Creat Clear Calc 73.4 eGFR > 60 BUN/Creatinine Ratio 21 H Glucose [address] Glu mg/dL 355 H Hemoglobin A1c > 14.0 H Calculated Osmolality 284 Lactic Acid 1.1 Calcium 7.7 L Corrected Calcium 8.3 L Phosphorus 2.8 Magnesium 1.5 L Total Bilirubin 0.2 L AST 10 ALT < 7 L Alkaline Phosphatase 79 D C-Reactive Prot, Quant Total Protein 6.3 Albumin 3.3 L D Globulin 3.0 Albumin/Globulin Ratio 1.1 L Procalcitonin Ur Collection Type Urine Color Urine Clarity Urine pH Ur Specific [place] Urine Protein Urine Glucose (UA) Urine Ketones Urine Blood Urine Nitrite Urine Bilirubin Urine Urobilinogen (Auto) Ur Leukocyte Esterase Urine RBC Urine WBC Ur Squamous Epith Cells Urine Bacteria Ur Culture Indicated? Quality Measures Quality Measures none Assessment & Plan Assessment Current Active Medications: Generic Name Dose Route Start Last Admin Trade Name Freq PRN Reason Stop Dose Admin Acetaminophen 650 mg 01/09/25 21:56 Acetaminophen 325 Mg Tablet PO 02/08/25 21:55 Q6H PRN Fever >100.3 or pain Dextrose 25 ml 01/09/25 21:03 Dextrose 50%-Water Inj 50 Ml Syringe IV 02/08/25 21:02 Q15MIN PRN BG 50-70 responsive npo pt Dextrose 50 ml 01/09/25 21:03 Dextrose 50%-Water Inj 50 Ml Syringe IV 02/08/25 21:02 Q15MIN PRN BG <50 OR BG <70 & pt unresponsive Fentanyl Citrate 50 mcg 01/09/25 21:00 Fentanyl Cit Inj 50 Mcg/Ml Amp 2ml IVP 01/14/25 20:59 X1 JOVANNY Glucagon 1 mg 01/09/25 21:03 Glucagon Inj 1 Mg Vial IM Q15MIN PRN BG <70, and no IV access Heparin Sodium (Porcine) 5,000 unit 01/09/25 22:15 01/10/25 07:46 Heparin Sod Inj 5000 Unit/Ml Vial SC 01/23/25 22:14 5,000 unit Q8HR JOVANNY Administration Sodium Chloride 1,000 mls @ 100 mls/hr 01/09/25 21:03 01/10/25 07:49 Ns IV 02/08/25 21:02 100 mls/hr .Q10H JOVANNY Administration Ceftriaxone Sodium 2 gm/ 50 mls @ 100 mls/hr 01/10/25 11:18 Sodium Chloride IV 01/17/25 11:17 QDAY JOVANNY Doxycycline Hyclate 100 mg/ 100 mls @ 100 mls/hr 01/10/25 11:30 Sodium Chloride IV 01/17/25 11:29 BID JOVANNY Insulin Glargine 10 unit 01/10/25 09:00 01/10/25 09:41 Insulin Glargine (Lantus) 5 Unit/0.05 Ml (Per 5 Units) SC 02/09/25 08:59 10 unit QDAY JOVANNY Administration Insulin Human Lispro 0 unit 01/10/25 07:30 01/10/25 07:48 Insulin Lispro (Admelog) 1 Unit/0.01 Ml Unit SC 02/09/25 07:29 1 unit AC JOVANNY Administration Protocol Ondansetron HCl 4 mg 01/09/25 21:56 Ondansetron Inj 2 Mg/Ml Inj 2 Ml IV 02/08/25 21:55 Q6H PRN NAUSEA OR VOMITING Protocol Sennosides 1 tab 01/09/25 21:56 Senna Tablet PO 02/08/25 21:55 QDAY PRN constipation Protocol Plan 54 yr male with PMH of poorly controlled diabetes, hypertension, hyperlipidemia presenting to ED today due to worsening infection at area of left leg amputation. 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 Patient to be admitted for treatment for sepsis secondary to osteomyelitis and STEPHANIE. #Osteomyelitis infection Patient has history of left BKA due to osteomyelitis in the past. Site of amputation showing signs of infection with pus, odor, erythema. No leukocytosis, ESR elevated 37, lactic acid 2.1, CRP elevated 4.1. Sepsis due to osteomyelitis with acute sepsis-related organ dysfunction as evidence by STEPHANIE. Left x-ray of foot, tibia, fibula showed cortical bone destruction with soft tissue swelling. Patient came in and found to have 2 or more SIRS criteria and was evaluated for sepsis. However, based upon further work-up, sepsis was ruled out. Lower extremity MRI showed extensive osteomyelitis distal tibia, small soft tissue abcess.Significant osteomyelitis distal tibia as above, 8 x 10 x 20 mm soft tissue abscess at the anterior distal margin of the tibia surgery was consulted however no surgical intervention at this time - Blood cultures pending - Surgery was consulted, appreciate recs - on rocephin + doxycycline (01/10/2025- - ID consulted, appreciate reccs #STEPHANIE-resolved Most likely pre renal in setting of sepsis. - Maintenance fluids - Avoid nephrotoxic agents - Daily CMP #Hx insulin-dependent diabetes, poorly controlled Glucose on admission 139. No recent A1c on file. Patient takes 20 units glargine, sliding scale insulin, metformin 1000 twice daily for diabetes at home. Average blood sugars at home 300?400. Patient does not comply to proper diet drinking multiple sodas every day. A1c >14 - Bedside blood glucose checks ACHS - Insulin lispro sliding scale - Carb consistent low diet #Hx HTN #Hx HLD currently normotensive at this time - atorvastatin 40mg HS Disposition: medsurg Fluids: None Feeding: carb consistent low Thrombo prophylaxis: Heparin Gastric Ulcer prophylaxis: none CODE STATUS: Full code Case discussed with my senior Dr. Song and my attending Dr. Roland iPckens MD PGY-1 LPatient examined and case discussed with the team including attending physician Dr Watkins Note reviewed, I agree with the care plan as documented. Mr Weber is a 54 year old male admitted for left BKA stump infection and possible osteomyelitis. MRI Lt leg for stump bone with contrast ordered for further evaluation. ID consulted for further recommendations. Average blood sugars 300?400 and HbA1c >14, started on sliding scale and low carb diet, added Glargine 10U HS as well. Blood sugar in hospital <180 Please refer to the note above for further details. - Abel Song MD, PGY 2 Disclaimer: The document may contain phonetic/typographic errors due to voice recognition software. These errors are purely due to imperfections in the software program and should not be misconstrued in any way to compromise the substance of the patient's medical care during this visit. L
[2025-01-10] MEDS: DOXYCYCLINE INJ 100 MG in SODIUM CHLORIDE 0.9% (POP) 100 ML IV ×2 (12:20→20:32)
[2025-01-10] MEDS: cefTRIAXone 2 GM in SODIUM CHLORIDE 0.9% (Popper) 50 ML IV (12:21)
[2025-01-10 13:01] VITALS: BMI 20.9
[2025-01-10 13:36] VITALS: BP 118/64; PULSE 92; RESP 18; TEMP 36.8; O2SAT 98
[2025-01-10 20:00] VITALS: BP 137/84; PULSE 95; RESP 18; TEMP 36.2; O2SAT 99
[2025-01-10] MEDS: ATORVASTATIN CALCIUM 20 MG TABLET 40 MG PO (20:32)
[2025-01-10] MEDS: INSULIN LISPRO (AdmeLOG) 1 UNIT/0.01 ML UNIT 3 UNIT SC (21:53)
[2025-01-10] MEDS: ZOLPIDEM 5 MG TABLET PO (21:54)
[2025-01-11] VITALS (8 sets, daily range): BP systolic 111–143; BP diastolic 75–88; PULSE 76–95; RESP 17–100; TEMP 36.2–36.6; O2SAT 96–99
[2025-01-11] MEDS: HEPARIN SOD INJ 5000 UNIT/ML VIAL SC ×3 (05:42→20:59)
[2025-01-11] MEDS: SODIUM CHLORIDE 0.9% 1000 ML 1,000 ML 100 ML IV (05:46)
[2025-01-11 06:18] LABS: Basophils % (Auto) 1 % (0-2.5); Eosinophils # (Auto) 0.2 Thou/mm3 (0.0-0.5); Eosinophils % (Auto) 4 % (0-10); Hematocrit 28.1 % (41.0-53.0); Hemoglobin 9.6 g/dL (13.5-16.0); Immature Granulocytes % (Auto) 0 % (0-0); Immature Granulocytes Auto 0.01 Thou/mm3 (0.00-0.00); Lymphocytes # (Auto) 1.6 Thou/mm3 (1.0-4.8); Lymphocytes % (Auto) 48 % (10-50); Mean Corpuscular HGB Conc 34.2 g/dl (31.0-37.0); Mean Corpuscular Volume 85 fL (80-100); Monocytes # (Auto) 0.4 Thou/mm3 (0.0-0.8); Monocytes % (Auto) 11 % (0-12); Neutrophils # (Auto) 1.2 Thou/mm3 (1.8-7.7); Neutrophils % (Auto) 36 % (37-80); Nucleated Red Blood Cell % 0 /100 WBC (0); Platelet Count 383 Thou/mm3 (140-440); RDW Standard Deviation 37.9 fL (35.1-43.9); Red Blood Count 3.31 Miln/mm3 (4.50-5.90); White Blood Count 3.5 Thou/mm3 (3.8-10.6)
[2025-01-11 06:38] LABS: Alanine Aminotransferase < 7 U/L (10-49); Albumin, Serum 3.3 gm/dL (3.5-5.0); Albumin/Globulin Ratio 1.2 (1.2-2.2); Alkaline Phosphatase 79 U/L (46-116); Anion Gap 6 (7-16); Aspartate Amino Transferase 10 U/L (0-34); BUN/Creatinine Ratio 14 Ratio (12-20); Bilirubin,Total 0.2 mg/dL (0.3-1.2); Blood Urea Nitrogen 13 mg/dL (9-23); Calcium 7.7 mg/dL (8.3-10.6); Calcium (Corrected) 8.3 mg/dL (8.5-10.1); Carbon Dioxide 23.6 mMol/L (20.0-31.0); Chloride 110 mMol/L (98-107); Creatinine (Component) 0.9 mg/dL (0.6-1.3); Estimated Creatinine Clearance 82.2 mL/min (>60); Globulin 2.8 gm/dL (2.3-3.5); Glucose 189 mg/dL (74-106); Osmolality,Calculated 284 (275-295); Sodium 140 mMol/L (136-145); Total Protein 6.1 gm/dL (5.7-8.2); eGFR > 60 See Note
[2025-01-11] MEDS: cefTRIAXone 2 GM in SODIUM CHLORIDE 0.9% (Popper) 50 ML IV (08:13)
[2025-01-11] MEDS: INSULIN LISPRO (AdmeLOG) 1 UNIT/0.01 ML UNIT SC ×3 (08:13→17:13)
[2025-01-11] MEDS: DOXYCYCLINE INJ 100 MG in SODIUM CHLORIDE 0.9% (POP) 100 ML IV (08:24)
--- NOTE | 2025-01-11 10:20 | PC.SS ---
SS met with patient who is alert/oriented. He was able to verify demographics. Patient is independent with ADL's. Admitted for osteomyelitis. Patient lives with . Patient has left leg amputation. Patient states he was told he'd need i.v. antibiotics. Patient states his is his careprovider but they discussed possible SNF. Patient has a walker and a wheelchair at home. He states he has a left prosthetic leg but it no longer fits. Patient states he's had home health previously for wound care and PT. He is diabetic and uses a glucometer machine. Patient is on diabetic medications. No problems accessing through pharmacy. Patient states he is needing an electric wheelchair for the future. Patient states he's thinking of short stay at SNF. No preference yet of which facility. SS will send out inquiry and PASRR.
[2025-01-11] MEDS: INSULIN GLARGINE (Lantus) 5 UNIT/0.05 ML (PER 5 UNITS) 10 UNIT SC (10:31)
--- NOTE | 2025-01-11 10:52 | ESPR_ITS ---
Documentation for date of: 01/11/25 Subjective - Hospitalist Subjective Interval history: Patient seen and eval this a.m. He states that he is doing well. Remains afebrile. No acute events overnight. He denies any shortness of breath, chest pain, nausea, vomiting, fevers, chills, dysuria, abdominal pain otherwise. Discussed with patient regarding general surgery recommendations that no intervention is needed at this time. Discussed with patient possibility of needing long-term IV antibiotics for 6 weeks either with home health versus at a residential facility. Patient is unsure if his is able to help with his IV antibiotics at home. He is considering a [facility], but hesitant about the long 6-week duration. Patient is otherwise understanding of his current situation and the need for tight blood glucose control. Exam Vital Signs Temp Pulse Resp BP Pulse Ox O2 Del Method 97.4 F 82 18 123/79 99 Room Air 01/11/25 07:12 01/11/25 07:12 01/11/25 07:12 01/11/25 07:12 01/11/25 07:12 01/11/25 07:12 Narrative Gen: No acute distress HEENT: NCAT, PERRLOU, Sclera anicteric, conjunctiva noninjected, oral mucosa moist without erythema Neck: Supple, full range of motion, no LAD CV: RRR, no murmurs, rubs or gallops Resp: CTAB/L, no wheezing, rhonchi or rales GI: abdomen soft, bowel sounds noted, no tenderness to palpation, no guarding or rebound tenderness, no organomegaly Skin: clean, dry, no rashes, lesions or ecchymosis Ext: Left lower extremity BKA stump has an opening over the middle distal aspect of his healed scar with dried scab overlying area. No drainage noted Neuro: A&O x3, CN II- XII intact b/l, no focal neurological deficits Objective - Hospitalist Labs Diagram: 01/11/25 05:11 01/11/25 05:11 Labs: Laboratory Results - last 24 hr 01/11/25 05:11 WBC 3.5 L RBC 3.31 L Hgb 9.6 L Hct 28.1 L MCV 85 MCH 29.0 MCHC 34.2 RDW Std Deviation 37.9 Plt Count 383 D Neut % (Auto) 36 L Lymph % (Auto) 48 [place] % (Auto) 11 Eos % (Auto) 4 Baso % (Auto) 1 Neut # (Auto) 1.2 L Lymph # (Auto) 1.6 [place] # (Auto) 0.4 Eos # (Auto) 0.2 Baso # (Auto) 0.0 Immature Gran # (Auto) 0.01 H Absolute Nucleated RBC 0.00 Immature Gran % 0 Nucleated RBC % 0 Sodium 140 Potassium 4.0 Chloride 110 H Carbon Dioxide 23.6 Anion Gap 6 L BUN 13 Creatinine 0.9 Estim Creat Clear Calc 82.2 eGFR > 60 BUN/Creatinine Ratio 14 Glucose 189 H Calculated Osmolality 284 Calcium 7.7 L Corrected Calcium 8.3 L Total Bilirubin 0.2 L AST 10 ALT < 7 L Alkaline Phosphatase 79 Total Protein 6.1 Albumin 3.3 L Globulin 2.8 Albumin/Globulin Ratio 1.2 Assessment & Plan Patient Synopsis 54 yr male with PMH of poorly controlled diabetes, hypertension, hyperlipidemia presenting to ED today due to worsening infection at area of left leg amputation. 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 Patient to be admitted for treatment for sepsis secondary to osteomyelitis and STEPHANIE. #Osteomyelitis of left BKA stump Patient has history of left BKA due to osteomyelitis in the past. Site of amputation showing signs of infection with pus, odor, erythema. No leukocytosis, ESR elevated 37, lactic acid 2.1, CRP elevated 4.1. Sepsis due to osteomyelitis with acute sepsis-related organ dysfunction as evidence by STEPHANIE. Left x-ray of foot, tibia, fibula showed cortical bone destruction with soft tissue swelling. Patient came in and found to have 2 or more SIRS criteria and was evaluated for sepsis. However, based upon further work-up, sepsis was ruled out. Lower extremity MRI showed extensive osteomyelitis distal tibia, small soft tissue abcess.Significant osteomyelitis distal tibia as above, 8 x 10 x 20 mm soft tissue abscess at the anterior distal margin of the tibia surgery was consulted however no surgical intervention at this time - Blood cultures pending - No surgical intervention recommended by surgery at this point - ID consulted, appreciate reccs - Will likely need 6 weeks of IV antibiotics in addition to oral doxycycline. Will follow-up with ID recs. Will wait for final cultures and sensitivities of blood culture. Will place PICC line once blood cultures are negative x 48 hours. This will likely be done on Tuesday and arrange for home health versus residential facility for IV antibiotics depending on patient's decision. #STEPHANIE-resolved Most likely pre renal in setting of sepsis. - Maintenance fluids - Avoid nephrotoxic agents - Daily CMP #Hx insulin-dependent diabetes, poorly controlled Glucose on admission 139. No recent A1c on file. Patient takes 20 units glargine, sliding scale insulin, metformin 1000 twice daily for diabetes at home. Average blood sugars at home 300?400. Patient does not comply to proper diet drinking multiple sodas every day. A1c >14 - Bedside blood glucose checks ACHS Will increase regimen to 12 units glargine daily, lispro 3 units 3 times daily in addition to sliding scale - Carb consistent low diet - Will request for freestyle mendy from dietitian #Hx HTN #Hx HLD currently normotensive at this time - atorvastatin 40mg HS Time Spent with Patient Time: Total time spent is greater than 50% in coordination of care (as documented) at patient's floor/unit and/or counseling patient: Time with patient: 25 - 35 minutes Reason for Continued Stay Reason for continued stay: further monitoring, further dx testing and IV antibiotics Quality Measures Quality Measures none
--- NOTE | 2025-01-11 10:59 | ESPR_ITS ---
Subjective Subjective Interval history: osteo L tibia with possible abscess by mri with osteo that is sl proximal to the stump but xray changes that are more distal and dm control that is poor with an a1c >14 noted Exam Vital Signs Temp Pulse Resp BP Pulse Ox O2 Del Method 97.4 F 82 18 123/79 99 Room Air 01/11/25 07:12 01/11/25 07:12 01/11/25 07:12 01/11/25 07:12 01/11/25 07:12 01/11/25 07:12 Narrative Exam L bka noted. healed sore at distal stump noted. Objective - Internal Medicine Labs 01/11/25 05:11 01/11/25 05:11 Labs: Laboratory Results - last 24 hr 01/11/25 05:11 WBC 3.5 L RBC 3.31 L Hgb 9.6 L Hct 28.1 L MCV 85 MCH 29.0 MCHC 34.2 RDW Std Deviation 37.9 Plt Count 383 D Neut % (Auto) 36 L Lymph % (Auto) 48 [place] % (Auto) 11 Eos % (Auto) 4 Baso % (Auto) 1 Neut # (Auto) 1.2 L Lymph # (Auto) 1.6 [place] # (Auto) 0.4 Eos # (Auto) 0.2 Baso # (Auto) 0.0 Immature Gran # (Auto) 0.01 H Absolute Nucleated RBC 0.00 Immature Gran % 0 Nucleated RBC % 0 Sodium 140 Potassium 4.0 Chloride 110 H Carbon Dioxide 23.6 Anion Gap 6 L BUN 13 Creatinine 0.9 Estim Creat Clear Calc 82.2 eGFR > 60 BUN/Creatinine Ratio 14 Glucose 189 H Calculated Osmolality 284 Calcium 7.7 L Corrected Calcium 8.3 L Total Bilirubin 0.2 L AST 10 ALT < 7 L Alkaline Phosphatase 79 Total Protein 6.1 Albumin 3.3 L Globulin 2.8 Albumin/Globulin Ratio 1.2 Assessment & Plan A&P Narrative 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 not new plan on taking care of his pain med needs while here and sleeper needs changed his iv doxy to po. rocephin 2 gm iv daily and po doxy ok for empiric rx if no surgery if there are surgical cx of the area of concern or if bc with a likely pathogen (not coag neg), then we may be able to narrow rx to target any pathogens found. bc are neg so far but it will not be 48hr till about 5 pm today would hold off on picc and outpt rx till tuesday as it can be hard to get approval from insurance over the weekend and setting up home care on sat is also challenging and nearly impossible, but if it can be done, rocephin 2 gm iv daily and po doxy 100 bid for 6 weeks ok with weekly cbc, renal panel, esr and line removal at end of rx ordered some labs for am as he is not likely to leave today Time Spent With Patient Time: Total time spent is greater than 50% in coordination of care (as documented) at patient's floor/unit and/or counseling patient:
--- NOTE | 2025-01-11 14:08 | ESCONSULT_ITS ---
RE: ANNELISE ALBERTO : 1970 DATE OF CONSULTATION: 01/11/2025 REFERRING PHYSICIAN: Elly Watkins MD REASON FOR CONSULTATION: Osteomyelitis of the left leg and uncontrolled diabetic. HISTORY OF PRESENT ILLNESS: The patient is a unfortunate 54-year-old man. He lives with his and two children and receives some disability payments, but those are going under review currently. Surgeries include right great toe amputation and left below-knee amputation, which was done in 02/2023 at [place]. The right great toe amputation was done previously prior to that. He does not know when and there is maybe some metal in the right foot as well. Medical problems include diabetes, A1c is greater than 14, peripheral vascular disease, and chronic low back pain. He has some mental health problems. 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 SURGERIES: Include left below-knee amputation in [place] in 02/2023, right great toe amputation prior to that, and right foot foreign material present before the surgery and left leg amputation at [place]. He also has some erectile dysfunction surgery in the past by Dr. Landis. ALLERGIES: NONE NOTED. IMMUNIZATIONS: Last tetanus is not known. He does take a flu shot every year. He has had two COVID vaccines and has not had pneumococcal vaccines. FAMILY HISTORY: Positive for diabetes in mother and both parents. SOCIAL HISTORY: He lives at home with his and two children. He is a former smoker, having quit years ago. Does not admit alcohol or substance use. He is not working currently, and is disabled and receives disability payments, but he is under evaluation for that. He sees a primary provider at [facility] at work in [place]. He is apparently managing his diabetes, although he is not doing much in terms of medication adherence. Imaging shows possible osteomyelitis of the left tibia but distant from the apparent abscess more distally. No drainage is planned. PHYSICAL EXAMINATION: Exam is grossly benign. There is a healed eschar noted on the left pretibial region where he had an amputation. The right great toe is amputated and the other toes look to be intact. The rest of his exam is grossly benign. He is alert and cooperative. ASSESSMENT: Osteomyelitis of the left tibia and possibly the right foot. RECOMMENDATIONS: The patient can and should have Rocephin and oral doxycycline. I am going to switch to oral doxycycline from intravenous to oral. If his blood cultures return positive, we can adjust his antibiotics and assume that if it is Staphylococcus aureus, it may be something that we want to target for his infection. At the same time, he also needs some mental health issues, pain medication, and sleeping pills provided upon departure. He asked about those particularly the pain medication and sleeping pills, so I advised him he will probably be here through the weekend as his blood cultures will not be negative for 48 hours until probably late today. I will check on him through the and I will see him on Tuesday as they will probably be here Tuesday. cc: Elly Watkins MD DT: 10:59:47 TT: 13:13:00 Ref: [id number] - TID: [id number] MTDD
[2025-01-11] MEDS: ACETAMINOPHEN 325 MG TABLET 650 MG PO (19:41)
[2025-01-11] MEDS: DOXYCYCLINE 100 MG TABLET PO (20:31)
[2025-01-11] MEDS: ATORVASTATIN CALCIUM 20 MG TABLET 40 MG PO (20:31)
[2025-01-11] MEDS: INSULIN LISPRO (AdmeLOG) 1 UNIT/0.01 ML UNIT 3 UNIT SC (20:59)
[2025-01-12] VITALS (9 sets, daily range): BP systolic 115–157; BP diastolic 69–96; PULSE 77–93; RESP 16–99; TEMP 36.1–36.6; O2SAT 98–100; BMI 20.9
[2025-01-12] MEDS: HEPARIN SOD INJ 5000 UNIT/ML VIAL SC ×3 (05:15→21:36)
[2025-01-12] MEDS: INSULIN LISPRO (AdmeLOG) 1 UNIT/0.01 ML UNIT 3 UNIT SC (05:15)
[2025-01-12 05:48] LABS: Basophils % (Auto) 1 % (0-2.5); Eosinophils # (Auto) 0.1 Thou/mm3 (0.0-0.5); Eosinophils % (Auto) 4 % (0-10); Hematocrit 29.7 % (41.0-53.0); Hemoglobin 10.4 g/dL (13.5-16.0); Immature Granulocytes % (Auto) 0 % (0-0); Immature Granulocytes Auto 0.01 Thou/mm3 (0.00-0.00); Lymphocytes # (Auto) 1.5 Thou/mm3 (1.0-4.8); Lymphocytes % (Auto) 40 % (10-50); Mean Corpuscular Hemoglobin 29.7 pg (25.0-35.0); Mean Corpuscular Volume 85 fL (80-100); Monocytes # (Auto) 0.4 Thou/mm3 (0.0-0.8); Monocytes % (Auto) 10 % (0-12); Neutrophils # (Auto) 1.8 Thou/mm3 (1.8-7.7); Neutrophils % (Auto) 46 % (37-80); Nucleated Red Blood Cell % 0 /100 WBC (0); Platelet Count 378 Thou/mm3 (140-440); RDW Standard Deviation 37.2 fL (35.1-43.9); White Blood Count 3.8 Thou/mm3 (3.8-10.6)
[2025-01-12 06:03] LABS: Sed Rate (ESR) 42 mm/hr (0-20)
[2025-01-12 06:21] LABS: Alanine Aminotransferase < 7 U/L (10-49); Albumin, Serum 3.5 gm/dL (3.5-5.0); Albumin/Globulin Ratio 1.2 (1.2-2.2); Alkaline Phosphatase 90 U/L (46-116); Anion Gap 7 (7-16); Aspartate Amino Transferase 10 U/L (0-34); BUN/Creatinine Ratio 17 Ratio (12-20); Bilirubin,Total 0.3 mg/dL (0.3-1.2); Blood Urea Nitrogen 17 mg/dL (9-23); C-Reactive Protein 1.1 mg/dL (0.0-0.9); Calcium 8.1 mg/dL (8.3-10.6); Calcium (Corrected) 8.5 mg/dL (8.5-10.1); Carbon Dioxide 24.5 mMol/L (20.0-31.0); Chloride 109 mMol/L (98-107); Globulin 2.9 gm/dL (2.3-3.5); Glucose 253 mg/dL (74-106); Osmolality,Calculated 289 (275-295); Potassium 3.9 mMol/L (3.4-5.1); Sodium 140 mMol/L (136-145); Total Protein 6.4 gm/dL (5.7-8.2); eGFR > 60 See Note
[2025-01-12] MEDS: INSULIN LISPRO (AdmeLOG) 1 UNIT/0.01 ML UNIT SC ×3 (07:44→16:58)
[2025-01-12] MEDS: DOXYCYCLINE 100 MG TABLET PO ×2 (08:36→20:08)
[2025-01-12] MEDS: cefTRIAXone/D5w 2gm 2 GM/50 ML BAG IV (08:36)
[2025-01-12] MEDS: INSULIN GLARGINE (Lantus) 5 UNIT/0.05 ML (PER 5 UNITS) 15 UNIT SC (08:36)
[2025-01-12 11:15] LABS: HIV (1&2) Antibody Rapid Non-Reactive
--- NOTE | 2025-01-12 11:40 | ESPR_ITS ---
Documentation for date of: 01/12/25 Subjective Subjective Interval history: Patient seen today at the bedside found awake, alert, oriented x 3. No overnight events reported. States he wants to continue IV antibiotic therapy at home once PICC line is set up on Tuesday with that she is a primary caregiver for the patient. Diabetic education provided to the patient by registered dietitian. Blood sugars continue to remain elevated insulin regimen adjusted insulin glargine 15 units daily, and lispro 6 units 3 times daily. Exam Vital Signs Temp Pulse Resp BP Pulse Ox O2 Del Method 97.6 F 79 18 137/85 H 99 Room Air 01/12/25 08:00 01/12/25 11:06 01/12/25 11:06 01/12/25 08:00 01/12/25 08:00 01/12/25 08:00 Narrative Exam Physical Exam GENERAL: NAD, AAOx3 HEENT: Moist mucosa. Eyes open, symmetrical, & clear CARDIO: Heart RRR, no obvious murmurs PULM: No noted coughing/dyspnea CTA B/L, no R/W/R GI: Abdomen soft, nondistended, no pain on palpation. BSx4 SKIN/MSK/EXT:Left lower extremity BKA stump covered, no pain on palpation. Pedal pulses present B/L NEURO: AAOx3, no focal neuro deficits, able to move extremities Objective Labs 01/12/25 04:55 01/12/25 04:55 Labs: Laboratory Results - last 24 hr 01/12/25 04:55 WBC 3.8 RBC 3.50 L Hgb 10.4 L Hct 29.7 L MCV 85 MCH 29.7 MCHC 35.0 RDW Std Deviation 37.2 Plt Count 378 Neut % (Auto) 46 Lymph % (Auto) 40 [place] % (Auto) 10 Eos % (Auto) 4 Baso % (Auto) 1 Neut # (Auto) 1.8 Lymph # (Auto) 1.5 [place] # (Auto) 0.4 Eos # (Auto) 0.1 Baso # (Auto) 0.0 Immature Gran # (Auto) 0.01 H Absolute Nucleated RBC 0.00 Immature Gran % 0 Nucleated RBC % 0 ESR 42 H Sodium 140 Potassium 3.9 Chloride 109 H Carbon Dioxide 24.5 Anion Gap 7 BUN 17 Creatinine 1.0 Estim Creat Clear Calc 74.0 eGFR > 60 BUN/Creatinine Ratio 17 Glucose 253 H D Calculated Osmolality 289 Calcium 8.1 L Corrected Calcium 8.5 Total Bilirubin 0.3 AST 10 ALT < 7 L Alkaline Phosphatase 90 C-Reactive Prot, Quant 1.1 H Total Protein 6.4 Albumin 3.5 Globulin 2.9 Albumin/Globulin Ratio 1.2 HIV 1&2 Antibody Rapid Non-Reactive Quality Measures Quality Measures none Assessment & Plan Assessment Current Active Medications: Generic Name Dose Route Start Last Admin Trade Name Freq PRN Reason Stop Dose Admin Acetaminophen 650 mg 01/09/25 21:56 01/11/25 19:41 Acetaminophen 325 Mg Tablet PO 02/08/25 21:55 650 mg Q6H PRN Administration Fever >100.3 or pain Atorvastatin Calcium 40 mg 01/10/25 21:00 01/11/25 20:31 Atorvastatin Calcium 20 Mg Tablet PO 02/09/25 20:59 40 mg HS JOVANNY Administration Dextrose 25 ml 01/09/25 21:03 Dextrose 50%-Water Inj 50 Ml Syringe IV 02/08/25 21:02 Q15MIN PRN BG 50-70 responsive npo pt Dextrose 50 ml 01/09/25 21:03 Dextrose 50%-Water Inj 50 Ml Syringe IV 02/08/25 21:02 Q15MIN PRN BG <50 OR BG <70 & pt unresponsive Doxycycline Hyclate 100 mg 01/11/25 21:00 01/12/25 08:36 Doxycycline 100 Mg Tablet PO 01/18/25 20:59 100 mg BID JOVANNY Administration Glucagon 1 mg 01/09/25 21:03 Glucagon Inj 1 Mg Vial IM Q15MIN PRN BG <70, and no IV access Heparin Sodium (Porcine) 5,000 unit 01/09/25 22:15 01/12/25 05:15 Heparin Sod Inj 5000 Unit/Ml Vial SC 01/23/25 22:14 5,000 unit Q8HR JOVANNY Administration Ceftriaxone Sodium/Dextrose 2 gm in 50 mls @ 100 mls/hr 01/12/25 09:00 01/12/25 10:21 Rocephin/D5w 2gm IV 01/17/25 11:17 Infused QDAY JOVANNY Infusion Insulin Glargine 15 unit 01/12/25 09:00 01/12/25 08:36 Insulin Glargine (Lantus) 5 Unit/0.05 Ml (Per 5 Units) SC 02/11/25 08:59 15 unit QDAY JOVANNY Administration Insulin Human Lispro 0 unit 01/10/25 07:30 01/12/25 11:33 Insulin Lispro (Admelog) 1 Unit/0.01 Ml Unit SC 02/09/25 07:29 3 unit AC JOVANNY Administration Protocol Insulin Human Lispro 6 unit 01/12/25 14:00 Insulin Lispro (Admelog) 1 Unit/0.01 Ml Unit SC 02/11/25 13:59 TID JOVANNY Ondansetron HCl 4 mg 01/09/25 21:56 Ondansetron Inj 2 Mg/Ml Inj 2 Ml IV 02/08/25 21:55 Q6H PRN NAUSEA OR VOMITING Protocol Sennosides 1 tab 01/09/25 21:56 Senna Tablet PO 02/08/25 21:55 QDAY PRN constipation Protocol Plan 54 yr male with PMH of poorly controlled diabetes, hypertension, hyperlipidemia presenting to ED today due to worsening infection at area of left leg amputation. 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 Patient to be admitted for treatment for sepsis secondary to osteomyelitis and STEPHANIE. #Osteomyelitis of left BKA stump Patient has history of left BKA due to osteomyelitis in the past. Site of amputation showing signs of infection with pus, odor, erythema. No leukocytosis, ESR elevated 37, lactic acid 2.1, CRP elevated 4.1. Sepsis due to osteomyelitis with acute sepsis-related organ dysfunction as evidence by STEPHANIE. Left x-ray of foot, tibia, fibula showed cortical bone destruction with soft tissue swelling. Patient came in and found to have 2 or more SIRS criteria and was evaluated for sepsis. However, based upon further work-up, sepsis was ruled out. Lower extremity MRI showed extensive osteomyelitis distal tibia, small soft tissue abcess.Significant osteomyelitis distal tibia as above, 8 x 10 x 20 mm soft tissue abscess at the anterior distal margin of the tibia surgery was consulted however no surgical intervention at this time Blood cultures negative in 48hours - No surgical intervention recommended by surgery at this point - ID consulted, appreciate reccs - on Ceftriaxone + PO doxycyline - Will likely need 6 weeks of IV antibiotics in addition to oral doxycycline. Will follow-up with ID recs. Will wait for final cultures and sensitivities of blood culture. Will place PICC line once blood cultures are negative x 48 hours. This will likely be done on Tuesday and arrange for home health versus group home facility for IV antibiotics depending on patient's decision. #STEPHANIE-resolved Most likely pre renal in setting of sepsis. - Maintenance fluids - Avoid nephrotoxic agents - Daily CMP #Hx insulin-dependent diabetes, poorly controlled Glucose on admission 139. No recent A1c on file. Patient takes 20 units glargine, sliding scale insulin, metformin 1000 twice daily for diabetes at home. Average blood sugars at home 300?400. Patient does not comply to proper diet drinking multiple sodas every day. A1c >14 - Bedside blood glucose checks ACHS Will increase regimen to 12 units glargine daily, lispro 3 units 3 times daily in addition to sliding scale - Carb consistent low diet - Will request for freestyle mendy from dietitian #Hx HTN #Hx HLD currently normotensive at this time - atorvastatin 40mg HS Disposition: medsurg Fluids: None Feeding: low carb cons Thrombo prophylaxis: heparin Gastric Ulcer prophylaxis:none CODE STATUS: Full code Case discussed with my attending Dr. Madeline Pickens MD PGY-1 Attending Provider Attestation/Addendum I, Blanca Correa DO, attest that I was physically present for the suazo portions of the service and evaluated the patient with the resident and I reviewed and discussed the case with the resident and agree with the resident's findings and plans of care as documented above Patient seen and eval this a.m. He states that he would like to be discharged home with home health to continue his antibiotic regimen. PICC line will be placed on Tuesday as blood cultures have been negative x 48 hours since last night. Minimal drainage noted from dressing of left BKA stump. Home health has been placed to continue IV Rocephin 2 g daily until February 23, 2025. He will continue with doxycycline 100 mg p.o. twice daily at the same time for the same duration of time. Anticipate discharge within the next 48 hours once PICC line is placed. No acute events overnight. Patient denies any fevers, chills, nausea, vomiting, chest pain, shortness of breath otherwise. Patient received diabetic education this morning by dietitian. Will need freestyle mendy on discharge. Will continue to uptitrate insulin as needed as blood glucose continues to be uncontrolled.
[2025-01-12] MEDS: INSULIN LISPRO (AdmeLOG) 1 UNIT/0.01 ML UNIT 6 UNIT SC ×2 (13:06→21:36)
[2025-01-12] MEDS: ATORVASTATIN CALCIUM 20 MG TABLET 40 MG PO (20:08)
[2025-01-12] MEDS: ACETAMINOPHEN 325 MG TABLET 650 MG PO (21:40)
[2025-01-13] VITALS (7 sets, daily range): BP systolic 109–141; BP diastolic 71–95; PULSE 80–90; RESP 16–98; TEMP 36.2–36.7; O2SAT 95–99
[2025-01-13 06:06] LABS: Basophils % (Auto) 1 % (0-2.5); Eosinophils # (Auto) 0.1 Thou/mm3 (0.0-0.5); Eosinophils % (Auto) 4 % (0-10); Hematocrit 28.5 % (41.0-53.0); Hemoglobin 10.1 g/dL (13.5-16.0); Immature Granulocytes % (Auto) 1 % (0-0); Immature Granulocytes Auto 0.02 Thou/mm3 (0.00-0.00); Lymphocytes # (Auto) 1.6 Thou/mm3 (1.0-4.8); Lymphocytes % (Auto) 45 % (10-50); Mean Corpuscular HGB Conc 35.4 g/dl (31.0-37.0); Mean Corpuscular Volume 82 fL (80-100); Monocytes # (Auto) 0.4 Thou/mm3 (0.0-0.8); Monocytes % (Auto) 12 % (0-12); Neutrophils # (Auto) 1.4 Thou/mm3 (1.8-7.7); Neutrophils % (Auto) 38 % (37-80); Nucleated Red Blood Cell % 0 /100 WBC (0); Platelet Count 383 Thou/mm3 (140-440); RDW Standard Deviation 37.2 fL (35.1-43.9); Red Blood Count 3.48 Miln/mm3 (4.50-5.90); White Blood Count 3.7 Thou/mm3 (3.8-10.6)
[2025-01-13] MEDS: INSULIN LISPRO (AdmeLOG) 1 UNIT/0.01 ML UNIT 6 UNIT SC ×2 (06:06→13:15)
[2025-01-13] MEDS: HEPARIN SOD INJ 5000 UNIT/ML VIAL SC ×3 (06:07→21:38)
[2025-01-13 06:43] LABS: Alanine Aminotransferase < 7 U/L (10-49); Albumin, Serum 3.6 gm/dL (3.5-5.0); Albumin/Globulin Ratio 1.2 (1.2-2.2); Alkaline Phosphatase 86 U/L (46-116); Anion Gap 8 (7-16); Aspartate Amino Transferase 15 U/L (0-34); BUN/Creatinine Ratio 21 Ratio (12-20); Bilirubin,Total 0.3 mg/dL (0.3-1.2); Blood Urea Nitrogen 19 mg/dL (9-23); Calcium 8.3 mg/dL (8.3-10.6); Calcium (Corrected) 8.6 mg/dL (8.5-10.1); Chloride 108 mMol/L (98-107); Creatinine (Component) 0.9 mg/dL (0.6-1.3); Estimated Creatinine Clearance 82.2 mL/min (>60); Glucose 221 mg/dL (74-106); Magnesium 1.4 mg/dL (1.6-2.6); Osmolality,Calculated 288 (275-295); Phosphorous 3.1 mg/dL (2.4-5.1); Potassium 3.7 mMol/L (3.4-5.1); Sodium 140 mMol/L (136-145); Total Protein 6.6 gm/dL (5.7-8.2); eGFR > 60 See Note
[2025-01-13] MEDS: ACETAMINOPHEN 325 MG TABLET 650 MG PO ×2 (07:06→20:46)
[2025-01-13] MEDS: INSULIN LISPRO (AdmeLOG) 1 UNIT/0.01 ML UNIT SC ×2 (07:36→11:23)
[2025-01-13] MEDS: DOXYCYCLINE 100 MG TABLET PO ×2 (08:34→20:47)
[2025-01-13] MEDS: cefTRIAXone/D5w 2gm 2 GM/50 ML BAG IV (08:34)
[2025-01-13] MEDS: INSULIN GLARGINE (Lantus) 5 UNIT/0.05 ML (PER 5 UNITS) 15 UNIT SC (08:35)
--- NOTE | 2025-01-13 11:33 | PD.RESPRO ---
Documentation for date of: 01/13/25 Subjective Subjective Interval history: Patient seen today at the bedside found awake, alert, orientedx3. No overnight events reported. Vitals and labs reviewed. Hemodynamically stable. Patient will require to complete 6 weeks of IV antibiotics, PICC line scheduled for tomorrow in the a.m. Wound examined during dressing changes with minimal purulent discharge noted. Patient does state the is agreeable to administer IV Abx, will pursue home with home health at time of dischargre. Will likely be able to discharge in the next 24-48 hours. Exam Vital Signs Temp Pulse Resp BP Pulse Ox O2 Del Method 97.1 F 80 16 109/71 99 Room Air 01/13/25 08:00 01/13/25 08:00 01/13/25 08:00 01/13/25 08:00 01/13/25 08:00 01/13/25 08:00 Narrative Exam Physical Exam GENERAL: NAD, AAOx3 HEENT: Moist mucosa. Eyes open, symmetrical, & clear CARDIO: Heart RRR, no obvious murmurs PULM: No noted coughing/dyspnea CTA B/L, no R/W/R GI: Abdomen soft, nondistended, no pain on palpation. BSx4 SKIN/MSK/EXT:Left lower extremity BKA stump covered, no pain on palpation. Pedal pulses present B/L NEURO: AAOx3, no focal neuro deficits, able to move extremities Objective Labs 01/13/25 05:12 01/13/25 05:12 Labs: Laboratory Results - last 24 hr 01/13/25 05:12 WBC 3.7 L RBC 3.48 L Hgb 10.1 L Hct 28.5 L MCV 82 MCH 29.0 MCHC 35.4 RDW Std Deviation 37.2 Plt Count 383 Neut % (Auto) 38 Lymph % (Auto) 45 [place] % (Auto) 12 Eos % (Auto) 4 Baso % (Auto) 1 Neut # (Auto) 1.4 L Lymph # (Auto) 1.6 [place] # (Auto) 0.4 Eos # (Auto) 0.1 Baso # (Auto) 0.0 Immature Gran # (Auto) 0.02 H Absolute Nucleated RBC 0.00 Immature Gran % 1 H Nucleated RBC % 0 Sodium 140 Potassium 3.7 Chloride 108 H Carbon Dioxide 24.0 Anion Gap 8 BUN 19 Creatinine 0.9 Estim Creat Clear Calc 82.2 eGFR > 60 BUN/Creatinine Ratio 21 H Glucose 221 H Calculated Osmolality 288 Calcium 8.3 Corrected Calcium 8.6 Phosphorus 3.1 Magnesium 1.4 L Total Bilirubin 0.3 AST 15 ALT < 7 L Alkaline Phosphatase 86 Total Protein 6.6 Albumin 3.6 Globulin 3.0 Albumin/Globulin Ratio 1.2 Quality Measures Quality Measures none Assessment & Plan Assessment Current Active Medications: Generic Name Dose Route Start Last Admin Trade Name Freq PRN Reason Stop Dose Admin Acetaminophen 650 mg 01/09/25 21:56 01/13/25 07:06 Acetaminophen 325 Mg Tablet PO 02/08/25 21:55 650 mg Q6H PRN Administration Fever >100.3 or pain Atorvastatin Calcium 40 mg 01/10/25 21:00 01/12/25 20:08 Atorvastatin Calcium 20 Mg Tablet PO 02/09/25 20:59 40 mg HS JOVANNY Administration Dextrose 25 ml 01/09/25 21:03 Dextrose 50%-Water Inj 50 Ml Syringe IV 02/08/25 21:02 Q15MIN PRN BG 50-70 responsive npo pt Dextrose 50 ml 01/09/25 21:03 Dextrose 50%-Water Inj 50 Ml Syringe IV 02/08/25 21:02 Q15MIN PRN BG <50 OR BG <70 & pt unresponsive Doxycycline Hyclate 100 mg 01/11/25 21:00 01/13/25 08:34 Doxycycline 100 Mg Tablet PO 01/18/25 20:59 100 mg BID JOVANNY Administration Glucagon 1 mg 01/09/25 21:03 Glucagon Inj 1 Mg Vial IM Q15MIN PRN BG <70, and no IV access Heparin Sodium (Porcine) 5,000 unit 01/09/25 22:15 01/13/25 06:07 Heparin Sod Inj 5000 Unit/Ml Vial SC 01/23/25 22:14 5,000 unit Q8HR JOVANNY Administration Ceftriaxone Sodium/Dextrose 2 gm in 50 mls @ 100 mls/hr 01/12/25 09:00 01/13/25 08:34 Rocephin/D5w 2gm IV 01/17/25 11:17 100 mls/hr QDAY JOVANNY Administration Insulin Glargine 15 unit 01/12/25 09:00 01/13/25 08:35 Insulin Glargine (Lantus) 5 Unit/0.05 Ml (Per 5 Units) SC 02/11/25 08:59 15 unit QDAY JOVANNY Administration Insulin Human Lispro 0 unit 01/10/25 07:30 01/13/25 11:23 Insulin Lispro (Admelog) 1 Unit/0.01 Ml Unit SC 02/09/25 07:29 2 unit AC JOVANNY Administration Protocol Insulin Human Lispro 6 unit 01/12/25 14:00 01/13/25 06:06 Insulin Lispro (Admelog) 1 Unit/0.01 Ml Unit SC 02/11/25 13:59 6 unit TID JOVANNY Administration Ondansetron HCl 4 mg 01/09/25 21:56 Ondansetron Inj 2 Mg/Ml Inj 2 Ml IV 02/08/25 21:55 Q6H PRN NAUSEA OR VOMITING Protocol Sennosides 1 tab 01/09/25 21:56 Senna Tablet PO 02/08/25 21:55 QDAY PRN constipation Protocol Plan 54 yr male with PMH of poorly controlled diabetes, hypertension, hyperlipidemia presenting to ED today due to worsening infection at area of left leg amputation. 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 Patient to be admitted for treatment for sepsis secondary to osteomyelitis and STEPHANIE. #Osteomyelitis of left BKA stump Patient has history of left BKA due to osteomyelitis in the past. Site of amputation showing signs of infection with pus, odor, erythema. No leukocytosis, ESR elevated 37, lactic acid 2.1, CRP elevated 4.1. Sepsis due to osteomyelitis with acute sepsis-related organ dysfunction as evidence by STEPHANIE. Left x-ray of foot, tibia, fibula showed cortical bone destruction with soft tissue swelling. Patient came in and found to have 2 or more SIRS criteria and was evaluated for sepsis. However, based upon further work-up, sepsis was ruled out. Lower extremity MRI showed extensive osteomyelitis distal tibia, small soft tissue abcess.Significant osteomyelitis distal tibia as above, 8 x 10 x 20 mm soft tissue abscess at the anterior distal margin of the tibia surgery was consulted however no surgical intervention at this time Blood cultures negative in 48hours - No surgical intervention recommended by surgery at this point - ID consulted, appreciate reccs - on Ceftriaxone (01/11-02/22) - on PO doxycyline (01/13-02/22) - Will likely need 6 weeks of IV antibiotics in addition to oral doxycycline. Will follow-up with ID recs. Will wait for final cultures and sensitivities of blood culture. Will place PICC line once blood cultures are negative x 48 hours. This will likely be done on Tuesday and arrange for home health for IV antibiotics, patient is agreeable to home with home health as the is able to administer medications and she is the primary animal care assistant. #STEPHANIE-resolved Most likely pre renal in setting of sepsis. - Maintenance fluids - Avoid nephrotoxic agents - Daily CMP #Hx insulin-dependent diabetes, poorly controlled Glucose on admission 139. No recent A1c on file. Patient takes 20 units glargine, sliding scale insulin, metformin 1000 twice daily for diabetes at home. Average blood sugars at home 300?400. Patient does not comply to proper diet drinking multiple sodas every day. A1c >14 - Bedside blood glucose checks ACHS - glargine 15u - lispro 8u TID - Carb consistent low diet - Will request for freestyle mendy from dietitian #Hx HTN #Hx HLD currently normotensive at this time - atorvastatin 40mg HS Disposition: medsurg Fluids: None Feeding: low carb cons Thrombo prophylaxis: heparin Gastric Ulcer prophylaxis:none CODE STATUS: Full code Case discussed with my attending Dr. Madeline Pickens MD PGY-1 Disclaimer: Despite multiple revisions, due to the dictation software being used, the document bellow may not be free of grammatical errors including phonetic/typographic errors. However, this does not deter from our commitment to providing health care in the patient's best interest in mind. Attending Provider Attestation/Addendum I, Blanca Correa DO, attest that I was physically present for the suazo portions of the service and evaluated the patient with the resident and I reviewed and discussed the case with the resident and agree with the resident's findings and plans of care as documented above Patient seen and evaluated this AM. He states he is doing well and eager to make lifestyle changes to improve BG. Patient states his is agreeable to [facility] for IV abx, which was contacted and confirmed. Anticipate PICC line placememt for tomorrow and anticipate DC home in next 24h once abx are delivered to the home.
--- NOTE | 2025-01-13 12:31 | PC.SS ---
DISPENSARY CLERK spoke to and agreed to have home health go to her home, DISPENSARY CLERK followed up with Dr. Correa about 's decision.
[2025-01-13] MEDS: INSULIN LISPRO (AdmeLOG) 1 UNIT/0.01 ML UNIT 8 UNIT SC ×2 (14:27→21:38)
--- NOTE | 2025-01-13 14:44 | PC.SS ---
Pt's stated that Shawanda Serrato is pt's PCP.
--- NOTE | 2025-01-13 17:01 | PC.CM ---
Patient needs IV ABX at discharge. He has been accepted by [facility]. He will be getting a PICC line placed tomorrow and his is in agreement to administer the IV ABX. Patient should be ready to discharge after PICC line placed.
[2025-01-13] MEDS: ATORVASTATIN CALCIUM 20 MG TABLET 40 MG PO (20:47)
[2025-01-13 20:54] LABS: Hepatitis C Antibody Non Reactive (Non React)
[2025-01-14] VITALS: BP 112/75; PULSE 85; RESP 17; TEMP 36.6; O2SAT 98
[2025-01-14 04:00] VITALS: BP 122/85; PULSE 85; RESP 17; TEMP 36.3; O2SAT 100
--- NOTE | 2025-01-14 04:00 | XR_ITS ---
Examination: Ultrasound-guided needle placement right brachial vein. Dual-lumen central line placement (PICC line). Fluoroscopy AP chest, portable, single view Exam date and time:January 14, 2025 1121 hours INDICATIONS: Need for long-term intravenous antibiotic therapy for osteomyelitis A timeout was completed verifying correct patient, procedure, site, positioning Informed consent provided Technique: The patient's site was prepped and draped in sterile fashion. Maximum Sterile Barrier Technique used including cap, mask, sterile gown, sterile gloves, and sterile full body drape. If ultrasound technique used: sterile gel and sterile probe covers. Hand Hygiene performed using proper scrub, soap and water, or alcohol-based hand rub. Site right portable apparatus utilized to confirm patency of the right brachial vein Utilizing ultrasonographic guidance successful 21-gauge needle puncture into the right brachial vein Ultrasound images recorded and stored. 5 cc 1% lidocaine administered for local anesthetic. Successful micropuncture with a 21-gauge needle is performed. 0.18 wire guide is then introduced into the SVC under fluoroscopic guidance. Dual-lumen catheter dilator is then introduced, followed by the catheter in the SVC and proper position under fluoroscopic guidance. Successful aspiration of blood and flushing with heparinized saline is then performed in the 2 venous limbs. The catheter sutured in place. Findings: Under fluoroscopy, the tip of the catheter is in good position in the vena cava. Portable chest x-ray, post line placement is ordered. Estimated blood loss 3 cc The patient tolerated the procedure well and was in stable and satisfactory condition at completion of the procedure Impression: Successful ultrasound-guided needle placement right brachial vein Successful placement of dual lumen central line, percutaneous Fluoroscopy 0.1 minute radiation dose 0.64 milligray 1 spot fluoroscopic chest film. AP chest completion procedure demonstrates satisfactory position central line. May use central line.
[2025-01-14] MEDS: INSULIN LISPRO (AdmeLOG) 1 UNIT/0.01 ML UNIT 8 UNIT SC ×2 (05:30→14:14)
[2025-01-14] MEDS: HEPARIN SOD INJ 5000 UNIT/ML VIAL SC ×2 (05:31→14:15)
[2025-01-14 06:47] LABS: Basophils # (Auto) 0.1 Thou/mm3 (0.0-0.2); Basophils % (Auto) 1 % (0-2.5); Eosinophils # (Auto) 0.1 Thou/mm3 (0.0-0.5); Eosinophils % (Auto) 3 % (0-10); Hematocrit 30.1 % (41.0-53.0); Hemoglobin 10.4 g/dL (13.5-16.0); Immature Granulocytes % (Auto) 1 % (0-0); Immature Granulocytes Auto 0.02 Thou/mm3 (0.00-0.00); Lymphocytes # (Auto) 1.8 Thou/mm3 (1.0-4.8); Lymphocytes % (Auto) 43 % (10-50); Mean Corpuscular HGB Conc 34.6 g/dl (31.0-37.0); Mean Corpuscular Hemoglobin 29.4 pg (25.0-35.0); Mean Corpuscular Volume 85 fL (80-100); Monocytes # (Auto) 0.4 Thou/mm3 (0.0-0.8); Monocytes % (Auto) 10 % (0-12); Neutrophils # (Auto) 1.8 Thou/mm3 (1.8-7.7); Neutrophils % (Auto) 42 % (37-80); Nucleated Red Blood Cell % 0 /100 WBC (0); Platelet Count 398 Thou/mm3 (140-440); RDW Standard Deviation 39.2 fL (35.1-43.9); Red Blood Count 3.54 Miln/mm3 (4.50-5.90); White Blood Count 4.2 Thou/mm3 (3.8-10.6)
[2025-01-14 06:55] LABS: Alanine Aminotransferase 13 U/L (10-49); Albumin, Serum 3.5 gm/dL (3.5-5.0); Albumin/Globulin Ratio 1.2 (1.2-2.2); Alkaline Phosphatase 90 U/L (46-116); Anion Gap 7 (7-16); Aspartate Amino Transferase 24 U/L (0-34); BUN/Creatinine Ratio 23 Ratio (12-20); Bilirubin,Total 0.2 mg/dL (0.3-1.2); Blood Urea Nitrogen 21 mg/dL (9-23); Calcium 8.5 mg/dL (8.3-10.6); Calcium (Corrected) 8.9 mg/dL (8.5-10.1); Carbon Dioxide 25.3 mMol/L (20.0-31.0); Chloride 108 mMol/L (98-107); Creatinine (Component) 0.9 mg/dL (0.6-1.3); Estimated Creatinine Clearance 82.2 mL/min (>60); Glucose 199 mg/dL (74-106); Magnesium 1.4 mg/dL (1.6-2.6); Osmolality,Calculated 288 (275-295); Phosphorous 3.5 mg/dL (2.4-5.1); Potassium 3.8 mMol/L (3.4-5.1); Sodium 140 mMol/L (136-145); Total Protein 6.5 gm/dL (5.7-8.2); eGFR > 60 See Note
[2025-01-14 08:00] VITALS: BP 111/75; PULSE 82; RESP 16; TEMP 36.3; O2SAT 95
--- NOTE | 2025-01-14 09:14 | PD.IDPROG ---
Subjective Subjective Interval history: stump as noted. foot stable. preparing for home iv rx Exam Vital Signs Temp Pulse Resp BP Pulse Ox O2 Del Method 97.3 F 82 16 111/75 95 Room Air 01/14/25 08:00 01/14/25 08:00 01/14/25 08:00 01/14/25 08:00 01/14/25 08:00 01/14/25 08:00 Narrative Exam no picc yet. he is planning on it. drainage on stump noted. Objective - Internal Medicine Labs 01/14/25 05:30 01/14/25 05:30 Labs: Laboratory Results - last 24 hr 01/12/25 01/14/25 04:55 05:30 WBC 4.2 RBC 3.54 L Hgb 10.4 L Hct 30.1 L MCV 85 MCH 29.4 MCHC 34.6 RDW Std Deviation 39.2 Plt Count 398 Neut % (Auto) 42 Lymph % (Auto) 43 [place] % (Auto) 10 Eos % (Auto) 3 Baso % (Auto) 1 Neut # (Auto) 1.8 Lymph # (Auto) 1.8 [place] # (Auto) 0.4 Eos # (Auto) 0.1 Baso # (Auto) 0.1 Immature Gran # (Auto) 0.02 H Absolute Nucleated RBC 0.00 Immature Gran % 1 H Nucleated RBC % 0 Sodium 140 Potassium 3.8 Chloride 108 H Carbon Dioxide 25.3 Anion Gap 7 BUN 21 Creatinine 0.9 Estim Creat Clear Calc 82.2 eGFR > 60 BUN/Creatinine Ratio 23 H Glucose 199 H Calculated Osmolality 288 Calcium 8.5 Corrected Calcium 8.9 Phosphorus 3.5 Magnesium 1.4 L Total Bilirubin 0.2 L AST 24 ALT 13 Alkaline Phosphatase 90 Total Protein 6.5 Albumin 3.5 Globulin 3.0 Albumin/Globulin Ratio 1.2 Hepatitis C Antibody Non Reactive Assessment & Plan A&P Narrative 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 not new plan on taking care of his pain med needs while here and sleeper needs changed his iv doxy to po on Tuesday. Rocephin 2 gm iv daily and po doxy ok for empiric rx if no surgery. particularly revision of stump. if there are surgical cx of the area of concern or if bc with a likely pathogen (not coag neg), then we may be able to narrow rx to target any pathogens found. bc are neg so far but it will not be 48hr till about 5 pm today would hold off on picc and outpt rx till tuesday as it can be hard to get approval from insurance over the weekend and setting up home care on sat is also challenging and nearly impossible, but if it can be done, rocephin 2 gm iv daily and po doxy 100 bid thru 02/20 with weekly cbc, renal panel, esr and line removal at end of rx. no need to f/u with id as outpt. I can not see him fast enough. usual wait times are 3-6 months.f/u with outpt primary. Time Spent With Patient Time: Total time spent is greater than 50% in coordination of care (as documented) at patient's floor/unit and/or counseling patient:
[2025-01-14] MEDS: cefTRIAXone/D5w 2gm 2 GM/50 ML BAG IV (09:56)
[2025-01-14] MEDS: DOXYCYCLINE 100 MG TABLET PO (09:57)
[2025-01-14] MEDS: INSULIN GLARGINE (Lantus) 5 UNIT/0.05 ML (PER 5 UNITS) 15 UNIT SC (09:58)
--- NOTE | 2025-01-14 11:03 | PC.NURSE ---
Pt alert and oriented x3, transfer to [facility] [employer] via [facility] accompanied by Brigette GRIMM.
[2025-01-14 12:00] VITALS: BP 129/89; PULSE 84; RESP 16; TEMP 36.7; O2SAT 100
[2025-01-14] MEDS: INSULIN LISPRO (AdmeLOG) 1 UNIT/0.01 ML UNIT SC ×2 (12:51→17:30)
--- NOTE | 2025-01-14 14:44 | PC.CC ---
Addendum entered by Tin Weston RN 01/14/25 16:31: dc summary sent to [facility] . Addendum entered by Tin Weston RN 01/14/25 15:41: Received confirmation from [facility] that medication will be delivered this evening. [facility] confirmed SOC 01/15/[address] Quezada made aware of confirmation of arrangements. Original Note: PICC line placed today, spoke to Dr. Quezada. stated pt is ready to dc today. Per [facility], iv abx can be delivered this evening. Per [facility] , SOC is 01/15/25.
--- NOTE | 2025-01-14 14:50 | ESDS_ITS ---
<Statement entered by Blanca Correa DO - 01/15/25 08:32> I, Blanca Correa DO, attest that I was physically present for the suazo portions of the service and evaluated the patient with the resident and I reviewed and discussed the case with the resident and agree with the resident's findings and plans of care as documented above Planned Discharge Date 01/14/25 DS: Providers Provider Date of admission: 01/09/25 20:59 Primary care physician: Physician No Primary/Family Admitting Provider: Arjun Álvarez MD Attending Provider on Admission: Blanca Correa DO Consults: 01/09/25 21:03 Consult to General Surgery Routine Comment: Consulting Provider: Magdaleno Harris 01/10/25 15:48 Consult to Infectious Diseases Routine Comment: Consulting Provider: Joseph Neves 01/11/25 09:27 Referral Wound Care Routine Comment: 01/11/25 15:36 Referral Nutritional Services Routine Comment: Wounds Referral OP Wound Healing Dept Routine Comment: Left stump pressure injury 01/11/25 16:37 Referral Registered Dietitian Routine Comment: noris brooke Attending Provider on DC: Abel Song MD Discharging Provider: Abel Song MD DS: Diagnosis Problem List Completed Was Problem List Reviewed/Reconciled?: Yes Hospital Course Hospital Course Hospital course: Hospital Course: Mr Weber is a 54 yr male with PMH of poorly controlled diabetes, hypertension, hyperlipidemia presenting to ED today due to worsening infection at area of left leg amputation. 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 Patient to be admitted for treatment for sepsis secondary to osteomyelitis and STEPHANIE. ID consulted for LT stump osteomyelitis, who recommended 6 weeks of IV antibiotics in addition to oral doxycycline. PICC line placed for the same, with home health as the is able to administer medications and she is the primary healthcare manager. Problems on this admission: - Osteomyelitis of left BKA stump - STEPHANIE-resolved - Insulin-dependent T2 DM, poorly controlled - Hx HTN - Hx HLD Procedures: PICC line for antibiotics for LT stump osteomyelitis Discharge instructions: 1) Follow up at [facility], Call [phone] for appointment. 2) Left stump: irrigate with Vashe cleanser, express exudates as possible. Pat dry, pack with larger wound with 1/4 in strip packing and cover with allyven dressing daily Other instructions: - Follow up with wound care instructions as above - Follow up with PCP within 1 week from DC - Take Doxycycline 100mg twice a day for 6 weeks to complete course, as prescribed - Home Health to give daily Rocephin for 6 weeks - Weekly CBC, ESR testing as ID recommendations - Your insulin has been changed to longer acting Degludec, please take as prescribed - Continue all other home medications - Return to ED if symptoms worsen We are grateful to be able to participate in Mr Weber' care. We wish him the best. Plan of care discussed with attending Abel Hermosillo M.D. PGY2 Disclaimer: Minor errors in communications designer may be present as this note was dictated using voice recognition software. Status at Discharge Cognitive/behavioral status at discharge: Stable to returning to baseline Time Spent with Patient Time attestation: Total time spent providing and/or coordinating discharge services: More than 50% Time spent: Greater than 30 minutes Exam Vital Signs Temp Pulse Resp BP Pulse Ox O2 Del Method 98.1 F 84 16 129/89 H 100 Room Air 01/14/25 12:00 01/14/25 12:00 01/14/25 12:00 01/14/25 12:00 01/14/25 12:00 01/14/25 12:00 Narrative Exam Physical Exam GENERAL: NAD, AAOx3 HEENT: Moist mucosa. Eyes open, symmetrical, & clear CARDIO: Heart RRR, no obvious murmurs PULM: No noted coughing/dyspnea CTA B/L, no R/W/R GI: Abdomen soft, nondistended, no pain on palpation. BSx4 SKIN/MSK/EXT:Left lower extremity BKA stump covered, no pain on palpation. Pedal pulses present B/L NEURO: AAOx3, no focal neuro deficits, able to move extremities Discharge Plan Plan Patient Disposition: Home w/HOME HEALTH Patient condition on transfer: Stable Care Plan Goals: 1) Follow up at [facility] W[facility] Healing clinic, Call [phone] for appointment. 2) Left stump: irrigate with Vashe cleanser, express exudates as possible. Pat dry, pack with larger wound with 1/4 in strip packing and cover with allyven dressing daily Other instructions: - Follow up with wound care instructions as above - Follow up with PCP within 1 week from DC - Take Doxycycline 100mg twice a day for 6 weeks to complete course, as prescribed - Home Health to give daily Rocephin for 6 weeks - Weekly CBC, ESR testing as ID recommendations - Your insulin has been changed to longer acting Degludec, please take as prescribed - Continue all other home medications - Return to ED if symptoms worsen Prescriptions/Referrals Prescriptions/Med Rec: New insulin degludec 200 unit/mL (3 mL) insulin pen 20 unit subcut QDAY Qty: 9 0RF doxycycline hyclate 100 mg capsule 100 mg PO BID 44 Days Qty: 88 0RF Continued metformin 1,000 mg tablet 1,000 mg PO BID Qty: 20 0RF trazodone 50 mg tablet 1 tab PO HS Patient Comments: take 1 tablet by mouth at bedtime ergocalciferol (vitamin D2) [Vitamin D2] 1,250 mcg (50,000 unit) capsule 1 cap PO QWEEK Patient Comments: take 1 capsule by mouth every week insulin lispro [Admelog SoloStar U-100 Insulin] 100 unit/mL insulin pen See Rx Instructions .ROUTE .COMPLEX Patient Comments: INJECT 10 UNITS SUBCUTANEOUSLY WITH BREAKFAST AND 10 UNITS WITH DINNER Rx Instructions: 10 units with breakfast 12 units with dinner Ozempic 0.25 mg or 0.5 mg(2 mg/1.5 mL) pen injector 0.5 mg SUBCUT QWEEK Patient Comments: inject 0.5 milligrams subcutaneously every week Rx Instructions: weds tramadol 50 mg tablet 50 mg PO Q6H PRN (Reason: pain) Qty: 20 0RF Discontinued insulin glargine [Basaglar KwikPen U-100 Insulin] 100 unit/mL (3 mL) insulin pen 20 unit SUBCUT HS Patient Comments: inject 20 units subcutaneously once daily AT NIGHT Referrals: No Primary/Family,Physician [Primary Care Provider] - Patient/Caregiver Discharge Instructions Discharge Activity: resume usual activities Print Language: Iranian Stand Alone Forms: Radha Award Info., Patient Portal Info Letter Discharge Order Discharge Orders: Discharge (Routine); Ordered 01/14/25 Ordered By: Abel Song Quality Discharge Quality Measures VTE prophylaxis
--- NOTE | 2025-01-14 15:02 | PC.CC ---
CGM order signed and sent to to [facility] via [employer] platform.
[2025-01-14 16:00] VITALS: BP 129/89; PULSE 85; RESP 16; TEMP 36.4; O2SAT 100
[2025-01-14 16:46] VITALS: PULSE 78; RESP 17; RESP 96
== END 2025-01-14 18:39 | disposition home health service (06) | DRG 564 ==
LOC: SERX 20:51 → SERHOLD 21:33 → S3SX 01-10 13:03
PROVIDERS: Internal Medicine Infectious Disease; Nurse Practitioner Primary Care; Student in an Organized Health Care Education/Training Program; Admitting Provider Internal Medicine; Emergency Provider Emergency Medicine; Visit Provider Internal Medicine
DX: T87.44 Infection of amputation stump, left lower extremity (principal); A41.9 Sepsis, unspecified organism; R65.20 Severe sepsis without septic shock; M86.162 Other acute osteomyelitis, left tibia and fibula; N17.9 Acute kidney failure, unspecified; E11.69 Type 2 diabetes mellitus with other specified complication; I10 Essential (primary) hypertension; E78.5 Hyperlipidemia, unspecified; Z89.512 Acquired absence of left leg below knee; Z89.421 Acquired absence of other right toe(s); L08.9 Local infection of the skin and subcutaneous tissue, unspecified; R30.0 Dysuria; E11.51 Type 2 diabetes mellitus with diabetic peripheral angiopathy without gangrene; E11.65 Type 2 diabetes mellitus with hyperglycemia; R31.9 Hematuria, unspecified; G89.29 Other chronic pain; Z79.4 Long term (current) use of insulin; Z79.84 Long term (current) use of oral hypoglycemic drugs; Z87.891 Personal history of nicotine dependence; Y83.5 Amputation of limb(s) as the cause of abnormal reaction of the patient, or of later complication, without mention of misadventure at the time of the procedure
CPT/HCPCS: 36415; 71045; 73590; 73718; 73719; 80053; 81001; 83036; 83605; 83735; 84100; 84145; 85025; 85610; 85652; 86140; 86703; 86803; 87040; 93225; 96361; 96365; 96366; 96367; 96368; 96372; 96375; 99285; A9579; C1894; J0696; J1644; J1815; J2405; J2543; J3370; J3490; J7030; J7050; A9270

== ENCOUNTER → 2025-01-18 | Outpatient (CLI) | payer MEDICARE, MEDICAID, SELFPAY ==
[2025-01-18 17:40] LABS: Basophils % (Auto) 1 % (0-2.5); Eosinophils # (Auto) 0.1 Thou/mm3 (0.0-0.5); Eosinophils % (Auto) 2 % (0-10); Hematocrit 31.5 % (41.0-53.0); Hemoglobin 10.8 g/dL (13.5-16.0); Immature Granulocytes % (Auto) 0 % (0-0); Immature Granulocytes Auto 0.01 Thou/mm3 (0.00-0.00); Lymphocytes # (Auto) 1.8 Thou/mm3 (1.0-4.8); Lymphocytes % (Auto) 40 % (10-50); Mean Corpuscular HGB Conc 34.3 g/dl (31.0-37.0); Mean Corpuscular Hemoglobin 29.4 pg (25.0-35.0); Mean Corpuscular Volume 86 fL (80-100); Monocytes # (Auto) 0.4 Thou/mm3 (0.0-0.8); Monocytes % (Auto) 10 % (0-12); Neutrophils # (Auto) 2.2 Thou/mm3 (1.8-7.7); Neutrophils % (Auto) 48 % (37-80); Nucleated Red Blood Cell % 0 /100 WBC (0); Platelet Count 437 Thou/mm3 (140-440); RDW Standard Deviation 42.4 fL (35.1-43.9); Red Blood Count 3.67 Miln/mm3 (4.50-5.90); White Blood Count 4.6 Thou/mm3 (3.8-10.6)
[2025-01-18 17:53] LABS: Sed Rate (ESR) 35 mm/hr (0-20)
[2025-01-18 17:56] LABS: Alanine Aminotransferase 15 U/L (10-49); Albumin, Serum 4.1 gm/dL (3.5-5.0); Albumin/Globulin Ratio 1.4 (1.2-2.2); Alkaline Phosphatase 102 U/L (46-116); Anion Gap 8 (7-16); Aspartate Amino Transferase 19 U/L (0-34); BUN/Creatinine Ratio 23 Ratio (12-20); Bilirubin,Total 0.3 mg/dL (0.3-1.2); Blood Urea Nitrogen 21 mg/dL (9-23); Carbon Dioxide 27.1 mMol/L (20.0-31.0); Chloride 101 mMol/L (98-107); Creatinine (Component) 0.9 mg/dL (0.6-1.3); Globulin 2.9 gm/dL (2.3-3.5); Glucose 135 mg/dL (74-106); Osmolality,Calculated 276 (275-295); Potassium 4.3 mMol/L (3.4-5.1); Sodium 136 mMol/L (136-145); eGFR > 60 See Note
== END | disposition home or self-care (01) ==
LOC: SLDO 16:28
PROVIDERS: PCP Physician Assistant; Referring Provider Physician Assistant; Visit Provider Physician Assistant
DX: Z01.89 Encounter for other specified special examinations (principal)
CPT/HCPCS: 36415; 80053; 85025; 85652

== ENCOUNTER → 2025-01-25 | Outpatient (CLI) | payer MEDICARE, MEDICAID, SELFPAY ==
[2025-01-25 15:59] LABS: Basophils % (Auto) 1 % (0-2.5); Eosinophils # (Auto) 0.1 Thou/mm3 (0.0-0.5); Eosinophils % (Auto) 3 % (0-10); Hematocrit 31.2 % (41.0-53.0); Hemoglobin 10.7 g/dL (13.5-16.0); Immature Granulocytes % (Auto) 0 % (0-0); Immature Granulocytes Auto 0.01 Thou/mm3 (0.00-0.00); Lymphocytes % (Auto) 32 % (10-50); Mean Corpuscular HGB Conc 34.3 g/dl (31.0-37.0); Mean Corpuscular Hemoglobin 29.8 pg (25.0-35.0); Mean Corpuscular Volume 87 fL (80-100); Monocytes # (Auto) 0.3 Thou/mm3 (0.0-0.8); Monocytes % (Auto) 8 % (0-12); Neutrophils # (Auto) 1.8 Thou/mm3 (1.8-7.7); Neutrophils % (Auto) 56 % (37-80); Nucleated Red Blood Cell % 0 /100 WBC (0); Platelet Count 336 Thou/mm3 (140-440); RDW Standard Deviation 42.8 fL (35.1-43.9); Red Blood Count 3.59 Miln/mm3 (4.50-5.90); White Blood Count 3.3 Thou/mm3 (3.8-10.6)
[2025-01-25 16:12] LABS: Alanine Aminotransferase 12 U/L (10-49); Albumin, Serum 4.1 gm/dL (3.5-5.0); Albumin/Globulin Ratio 1.4 (1.2-2.2); Alkaline Phosphatase 117 U/L (46-116); Anion Gap 11 (7-16); Aspartate Amino Transferase 19 U/L (0-34); BUN/Creatinine Ratio 17 Ratio (12-20); Bilirubin,Total 0.3 mg/dL (0.3-1.2); Blood Urea Nitrogen 19 mg/dL (9-23); Calcium 8.8 mg/dL (8.3-10.6); Calcium (Corrected) 8.8 mg/dL (8.5-10.1); Carbon Dioxide 25.6 mMol/L (20.0-31.0); Chloride 104 mMol/L (98-107); Creatinine (Component) 1.1 mg/dL (0.6-1.3); Glucose 295 mg/dL (74-106); Osmolality,Calculated 294 (275-295); Potassium 3.8 mMol/L (3.4-5.1); Sodium 141 mMol/L (136-145); Total Protein 7.1 gm/dL (5.7-8.2); eGFR > 60 See Note
[2025-01-25 16:46] LABS: Sed Rate (ESR) 25 mm/hr (0-20)
== END | disposition home or self-care (01) ==
PROVIDERS: PCP Internal Medicine; Referring Provider Internal Medicine; Visit Provider Internal Medicine
DX: M86.9 Osteomyelitis, unspecified (principal); A41.9 Sepsis, unspecified organism
CPT/HCPCS: 36415; 80053; 84100; 85025; 85652

== ENCOUNTER → 2025-01-31 | Outpatient (CLI) | payer MEDICARE, MEDICAID, SELFPAY ==
[2025-01-31 16:48] LABS: Basophils % (Auto) 1 % (0-2.5); Eosinophils # (Auto) 0.1 Thou/mm3 (0.0-0.5); Eosinophils % (Auto) 3 % (0-10); Hematocrit 33.2 % (41.0-53.0); Hemoglobin 11.4 g/dL (13.5-16.0); Immature Granulocytes % (Auto) 0 % (0-0); Immature Granulocytes Auto 0.01 Thou/mm3 (0.00-0.00); Lymphocytes # (Auto) 1.5 Thou/mm3 (1.0-4.8); Lymphocytes % (Auto) 48 % (10-50); Mean Corpuscular HGB Conc 34.3 g/dl (31.0-37.0); Mean Corpuscular Hemoglobin 29.9 pg (25.0-35.0); Mean Corpuscular Volume 87 fL (80-100); Monocytes # (Auto) 0.4 Thou/mm3 (0.0-0.8); Monocytes % (Auto) 12 % (0-12); Neutrophils # (Auto) 1.1 Thou/mm3 (1.8-7.7); Neutrophils % (Auto) 35 % (37-80); Nucleated Red Blood Cell % 0 /100 WBC (0); Platelet Count 333 Thou/mm3 (140-440); RDW Standard Deviation 43.8 fL (35.1-43.9); Red Blood Count 3.81 Miln/mm3 (4.50-5.90); White Blood Count 3.1 Thou/mm3 (3.8-10.6)
[2025-01-31 17:08] LABS: Albumin, Serum 4.2 gm/dL (3.5-5.0); Albumin/Globulin Ratio 1.4 (1.2-2.2); Alkaline Phosphatase 85 U/L (46-116); Anion Gap 11 (7-16); Aspartate Amino Transferase 18 U/L (0-34); BUN/Creatinine Ratio 19 Ratio (12-20); Bilirubin,Total 0.4 mg/dL (0.3-1.2); Blood Urea Nitrogen 17 mg/dL (9-23); Calcium 9.1 mg/dL (8.3-10.6); Calcium (Corrected) 9.1 mg/dL (8.5-10.1); Carbon Dioxide 25.5 mMol/L (20.0-31.0); Chloride 106 mMol/L (98-107); Creatinine (Component) 0.9 mg/dL (0.6-1.3); Globulin 2.9 gm/dL (2.3-3.5); Glucose 63 mg/dL (74-106); Osmolality,Calculated 282 (275-295); Sodium 142 mMol/L (136-145); Total Protein 7.1 gm/dL (5.7-8.2); eGFR > 60 See Note
[2025-01-31 17:10] LABS: Alanine Aminotransferase 10 U/L (10-49)
[2025-01-31 17:26] LABS: Sed Rate (ESR) 20 mm/hr (0-20)
== END | disposition home or self-care (01) ==
LOC: SLDO 15:01 → COPL 02-01 10:07
PROVIDERS: PCP Internal Medicine; Referring Provider Internal Medicine; Visit Provider Internal Medicine
DX: M86.9 Osteomyelitis, unspecified (principal)
CPT/HCPCS: 36415; 80053; 85025; 85652

== ENCOUNTER → 2025-02-07 | Outpatient (CLI) | payer MEDICARE, MEDICAID, SELFPAY ==
[2025-02-07 14:07] LABS: Alanine Aminotransferase 16 U/L (10-49); Albumin/Globulin Ratio 1.5 (1.2-2.2); Alkaline Phosphatase 80 U/L (46-116); Anion Gap 14 (7-16); Aspartate Amino Transferase 20 U/L (0-34); BUN/Creatinine Ratio 19 Ratio (12-20); Bilirubin,Total 0.6 mg/dL (0.3-1.2); Blood Urea Nitrogen 17 mg/dL (9-23); Calcium 8.6 mg/dL (8.3-10.6); Calcium (Corrected) 8.6 mg/dL (8.5-10.1); Chloride 105 mMol/L (98-107); Creatinine (Component) 0.9 mg/dL (0.6-1.3); Globulin 2.6 gm/dL (2.3-3.5); Glucose 219 mg/dL (74-106); Osmolality,Calculated 297 (275-295); Potassium 4.2 mMol/L (3.4-5.1); Sodium 145 mMol/L (136-145); Total Protein 6.6 gm/dL (5.7-8.2); eGFR > 60 See Note
[2025-02-07 14:51] LABS: Sed Rate (ESR) 20 mm/hr (0-20)
[2025-02-07 14:59] LABS: Basophils % (Auto) 1 % (0-2.5); Eosinophils # (Auto) 0.1 Thou/mm3 (0.0-0.5); Eosinophils % (Auto) 2 % (0-10); Hemoglobin 11.2 g/dL (13.5-16.0); Immature Granulocytes % (Auto) 0 % (0-0); Lymphocytes # (Auto) 1.4 Thou/mm3 (1.0-4.8); Lymphocytes % (Auto) 39 % (10-50); Mean Corpuscular HGB Conc 33.9 g/dl (31.0-37.0); Mean Corpuscular Hemoglobin 29.8 pg (25.0-35.0); Mean Corpuscular Volume 88 fL (80-100); Monocytes # (Auto) 0.4 Thou/mm3 (0.0-0.8); Monocytes % (Auto) 11 % (0-12); Neutrophils # (Auto) 1.7 Thou/mm3 (1.8-7.7); Neutrophils % (Auto) 48 % (37-80); Nucleated Red Blood Cell % 0 /100 WBC (0); Platelet Count 294 Thou/mm3 (140-440); RDW Standard Deviation 43.2 fL (35.1-43.9); Red Blood Count 3.76 Miln/mm3 (4.50-5.90); White Blood Count 3.6 Thou/mm3 (3.8-10.6)
== END | disposition home or self-care (01) ==
LOC: SLDO 13:09
PROVIDERS: Referring Provider Internal Medicine; Visit Provider Internal Medicine
DX: M86.9 Osteomyelitis, unspecified (principal)
CPT/HCPCS: 36415; 80053; 85025; 85652

== ENCOUNTER → 2025-02-08 | Outpatient (CLI) | payer MEDICARE, MEDICAID, SELFPAY | END | disposition home or self-care (01) | LOC: SWHD 07:58 | PROVIDERS: Visit Provider Student in an Organized Health Care Education/Training Program | DX: S81.802A Unspecified open wound, left lower leg, initial encounter (principal); X58.XXXA Exposure to other specified factors, initial encounter; E11.69 Type 2 diabetes mellitus with other specified complication; Z79.4 Long term (current) use of insulin; Z79.84 Long term (current) use of oral hypoglycemic drugs; I10 Essential (primary) hypertension; M86.9 Osteomyelitis, unspecified; I73.9 Peripheral vascular disease, unspecified; Z89.512 Acquired absence of left leg below knee | CPT/HCPCS: 99213; G0463 ==

== ENCOUNTER → 2025-02-14 | Outpatient (CLI) | payer MEDICARE, MEDICAID, SELFPAY ==
[2025-02-14 14:05] LABS: Basophils % (Auto) 1 % (0-2.5); Eosinophils # (Auto) 0.1 Thou/mm3 (0.0-0.5); Eosinophils % (Auto) 2 % (0-10); Hematocrit 29.8 % (41.0-53.0); Hemoglobin 10.8 g/dL (13.5-16.0); Immature Granulocytes % (Auto) 0 % (0-0); Immature Granulocytes Auto 0.01 Thou/mm3 (0.00-0.00); Lymphocytes # (Auto) 1.3 Thou/mm3 (1.0-4.8); Lymphocytes % (Auto) 38 % (10-50); Mean Corpuscular HGB Conc 36.2 g/dl (31.0-37.0); Mean Corpuscular Hemoglobin 29.7 pg (25.0-35.0); Mean Corpuscular Volume 82 fL (80-100); Monocytes # (Auto) 0.4 Thou/mm3 (0.0-0.8); Monocytes % (Auto) 11 % (0-12); Neutrophils # (Auto) 1.6 Thou/mm3 (1.8-7.7); Neutrophils % (Auto) 48 % (37-80); Nucleated Red Blood Cell % 0 /100 WBC (0); Platelet Count 280 Thou/mm3 (140-440); RDW Standard Deviation 37.7 fL (35.1-43.9); Red Blood Count 3.64 Miln/mm3 (4.50-5.90); White Blood Count 3.4 Thou/mm3 (3.8-10.6)
[2025-02-14 14:36] LABS: Alanine Aminotransferase 9 U/L (10-49); Albumin, Serum 4.3 gm/dL (3.5-5.0); Albumin/Globulin Ratio 1.6 (1.2-2.2); Alkaline Phosphatase 91 U/L (46-116); Anion Gap 11 (7-16); BUN/Creatinine Ratio 18 Ratio (12-20); Bilirubin,Total 0.4 mg/dL (0.3-1.2); Blood Urea Nitrogen 18 mg/dL (9-23); Calcium 9.1 mg/dL (8.3-10.6); Calcium (Corrected) 9.1 mg/dL (8.5-10.1); Carbon Dioxide 26.9 mMol/L (20.0-31.0); Chloride 105 mMol/L (98-107); Globulin 2.7 gm/dL (2.3-3.5); Glucose 123 mg/dL (74-106); Osmolality,Calculated 287 (275-295); Potassium 3.9 mMol/L (3.4-5.1); Sodium 143 mMol/L (136-145); eGFR > 60 See Note
[2025-02-14 16:14] LABS: Sed Rate (ESR) 21 mm/hr (0-20)
== END | disposition home or self-care (01) ==
PROVIDERS: PCP Internal Medicine; Referring Provider Internal Medicine; Visit Provider Internal Medicine
DX: M86.9 Osteomyelitis, unspecified (principal)
CPT/HCPCS: 36415; 80053; 85025; 85652

== ENCOUNTER → 2025-02-15 | Outpatient (CLI) | payer MEDICARE, MEDICAID, SELFPAY | END | disposition home or self-care (01) | PROVIDERS: PCP Physician Assistant; Referring Provider Physician Assistant; Visit Provider Surgery | DX: S81.802A Unspecified open wound, left lower leg, initial encounter (principal); X58.XXXA Exposure to other specified factors, initial encounter; E11.69 Type 2 diabetes mellitus with other specified complication; Z79.4 Long term (current) use of insulin; Z79.84 Long term (current) use of oral hypoglycemic drugs; I10 Essential (primary) hypertension; M86.9 Osteomyelitis, unspecified; I73.9 Peripheral vascular disease, unspecified; Z89.512 Acquired absence of left leg below knee | CPT/HCPCS: 99212; G0463 ==

== ENCOUNTER → 2025-02-21 | Outpatient (CLI) | payer MEDICARE, MEDICAID, SELFPAY ==
[2025-02-21 13:31] LABS: Basophils % (Auto) 1 % (0-2.5); Eosinophils # (Auto) 0.1 Thou/mm3 (0.0-0.5); Eosinophils % (Auto) 2 % (0-10); Hematocrit 32.3 % (41.0-53.0); Hemoglobin 11.6 g/dL (13.5-16.0); Immature Granulocytes % (Auto) 0 % (0-0); Immature Granulocytes Auto 0.01 Thou/mm3 (0.00-0.00); Lymphocytes # (Auto) 1.3 Thou/mm3 (1.0-4.8); Lymphocytes % (Auto) 37 % (10-50); Mean Corpuscular HGB Conc 35.9 g/dl (31.0-37.0); Mean Corpuscular Volume 84 fL (80-100); Monocytes # (Auto) 0.4 Thou/mm3 (0.0-0.8); Monocytes % (Auto) 11 % (0-12); Neutrophils # (Auto) 1.7 Thou/mm3 (1.8-7.7); Neutrophils % (Auto) 48 % (37-80); Nucleated Red Blood Cell % 0 /100 WBC (0); Platelet Count 342 Thou/mm3 (140-440); RDW Standard Deviation 38.7 fL (35.1-43.9); Red Blood Count 3.87 Miln/mm3 (4.50-5.90); White Blood Count 3.5 Thou/mm3 (3.8-10.6)
[2025-02-21 13:43] LABS: Alanine Aminotransferase 13 U/L (10-49); Albumin, Serum 4.4 gm/dL (3.5-5.0); Albumin/Globulin Ratio 1.8 (1.2-2.2); Alkaline Phosphatase 74 U/L (46-116); Anion Gap 10 (7-16); Aspartate Amino Transferase 17 U/L (0-34); BUN/Creatinine Ratio 19 Ratio (12-20); Bilirubin,Total 0.7 mg/dL (0.3-1.2); Blood Urea Nitrogen 21 mg/dL (9-23); Calcium 9.9 mg/dL (8.3-10.6); Calcium (Corrected) 9.9 mg/dL (8.5-10.1); Carbon Dioxide 27.2 mMol/L (20.0-31.0); Chloride 101 mMol/L (98-107); Creatinine (Component) 1.1 mg/dL (0.6-1.3); Globulin 2.4 gm/dL (2.3-3.5); Glucose 228 mg/dL (74-106); Osmolality,Calculated 285 (275-295); Potassium 4.2 mMol/L (3.4-5.1); Sodium 138 mMol/L (136-145); Total Protein 6.8 gm/dL (5.7-8.2); eGFR > 60 See Note
[2025-02-21 13:51] LABS: Sed Rate (ESR) 20 mm/hr (0-20)
== END | disposition home or self-care (01) ==
PROVIDERS: Referring Provider Internal Medicine; Visit Provider Internal Medicine
DX: M86.9 Osteomyelitis, unspecified (principal)
CPT/HCPCS: 36415; 80053; 85025; 85652